=== PATIENT | female | born 1945 | race Two or more races ===

== ENCOUNTER → 2019-06-05 | Outpatient (CLI) | payer MEDICARE | LOC: MSC 15:45 | PROVIDERS: ATTEND Anesthesiology | DX: M17.11 Unilateral primary osteoarthritis, right knee (principal); F20.0 Paranoid schizophrenia ==

== ENCOUNTER 2019-09-10 21:41 | Inpatient (IN) | payer MEDICARE, OTHER ==
[~2019-09-10] VITALS: Ht 165.1 cm; Wt 108.9 kg
[2019-09-10] MEDS ORDERED: MAG HYDROX/AL HYDROX/SIMETH 30 ML UDC PO PRN (22:30)
[2019-09-10] MEDS ORDERED: BLOOD SUGAR DIAGNOSTIC 1 EACH STRIP IN ONE (22:30)
[2019-09-10] MEDS ORDERED: MAGNESIUM HYDROXIDE 30 ML UDC PO PRN (22:30)
[2019-09-10] MEDS ORDERED: LORAZEPAM 0.5 MG TABLET PO PRN (22:30)
--- NOTE | 2019-09-10 22:30 | NUR ---
Received patient azalea oliveros, stable condition, ambulatory with walker, patient signed the voluntary papers. Will continue to monitor q15 mins for safety
[2019-09-10] MEDS ORDERED: LANS30CA56 PO (23:17)
[2019-09-10] MEDS ORDERED: BENZ1TAB7 PO (23:17)
[2019-09-10] MEDS ORDERED: RISP1TAB7 PO (23:17)
[2019-09-10] MEDS ORDERED: MELO-107 PO (23:17)
[2019-09-10] MEDS ORDERED: IBUP-1957 PO (23:17)
[2019-09-10] MEDS ORDERED: LISI-603 PO (23:17)
[2019-09-10] MEDS ORDERED: DIVA500T2 PO (23:17)
--- NOTE | 2019-09-10 23:44 | NUR ---
Admitted a 73 y/o female from [facility]. On voluntary status. Patient admitting Dx. Major Depression. Medical dx. hypertension, GERD, arthritis. NKA. Upon face to face evaluation, patient appeared alert and oriented x 3-4, verbalized depression and suicidal ideation. Patient stated that she is feeling worthless because she is homeless, financial problem, no family and her physical condition. Patient contracted for safety and stated she needs help because she wants to get better. Spoke to the patient, encouraged the patient to verbalize her feelings. Explained the paper works and patient sign the consents. Informed of visiting hours and unit policies. Belongings and contraband checked. Q15 min checks initiated. Care plan started. Vital signs checked and recorded. Patient's rights discussed, guide to prescription meds handbook provided. Notified Dr. Encarnacion of the admission. Notified Dr. Desouza to reconcile the medication. Patient chose to sign the non-disclosure of informations. Will monitor patient for mood, safety and behavior. Will endorse to the day shift.
[2019-09-11] MEDS ORDERED: DIVALPROEX SODIUM 500 MG TABLET.DR PO SCH
[2019-09-11] MEDS ORDERED: IBUPROFEN 800 MG TABLET PO PRN
[2019-09-11 00:28] VITALS: BP 145/68
[2019-09-11 07:15] LABS: BASOPHILS % (AUTO) 0.3 % (0.0-2.0); EOSINOPHILS % (AUTO) 1.8 % (0.0-6.0); HEMATOCRIT 41 % (33-45); HEMOGLOBIN 13.5 g/dL (11.5-14.8); LYMPHOCYTES # (AUTO) 0.9 /CMM (0.8-4.8); LYMPHOCYTES % (AUTO) 21.7 % (20.0-44.0); MEAN CORPUSCULAR HGB CONC 33 g/dl (31.0-36.0); MEAN CORPUSCULAR VOLUME 92 fL (82-100); MONOCYTES # (AUTO) 0.6 /CMM (0.1-1.30); MONOCYTES % (AUTO) 14.8 % (2.0-12.0); NEUTROPHILS # (AUTO) 2.6 /CMM (1.8-8.9); NEUTROPHILS % (AUTO) 61.4 % (43.0-81.0); PLATELET COUNT (AUTO) 144 /CMM (150-450); RED BLOOD CELL COUNT(AUTO) 4.48 MIL/uL (4.0-5.2); WHITE BLOOD COUNT (AUTO) 4.3 K/uL (4.3-11.0)
[2019-09-11 07:18] LABS: ALBUMIN 3.4 g/dL (3.4-5.0); BILIRUBIN,TOTAL 0.6 mg/dL (0.2-1.0); CREATININE 0.8 mg/dL (0.6-1.3); MAGNESIUM 2.7 mg/dL (1.8-2.4); PHOSPHORUS 3.5 mg/dL (2.5-4.9); POTASSIUM 3.4 mmol/L (3.5-5.1); TOTAL PROTEIN, SERUM 6.2 g/dL (6.4-8.2)
[2019-09-11 07:28] LABS: THYROID STIMULATING HORMONE 4.237 uIU/mL (0.358-3.74)
[2019-09-11] MEDS ORDERED: IBUPROFEN 400 MG TABLET PO PRN (07:30)
[2019-09-11 08:00] VITALS: BP 136/58
[2019-09-11] MEDS: PANTOPRAZOLE 40 MG TABLET.DR PO SCH (09:17)
[2019-09-11] MEDS: LISINOPRIL (20MG) 20 MG TABLET PO SCH (09:19)
[2019-09-11] MEDS ORDERED: POTASSIUM CHLORIDE 20 MEQ TAB.PRT.SR PO SCH (10:00)
--- NOTE | 2019-09-11 14:00 | NUR ---
INITIAL DISCHARGE PLAN: Pt is homeless and wishes to be discharged to a SNF. SW will help form a safe and proper discharge plan in collaboration with .
--- NOTE | 2019-09-11 15:12 | NUR ---
GROUP NOTE: SW encouraged pt to participate in group therapy on this present day to discuss "discharge planning." Pt states that she needs a place to go as she is currently homeless, Pt states that she is open to SNF placement and also stated that she has many friends that have supported her but is tired of not having anywhere to go. SW provided reassurance and stated that she would assist her with placing her at a SNF.
[2019-09-11 16:00] VITALS: BP 148/73
--- NOTE | 2019-09-11 18:00 | NUR ---
STATED DEPRESSED UPON AWAKENING,BUT CONGENIAL AND RECEPTIVE TO SUGGESTIONS AND MED COMPLIANT.
[2019-09-11] MEDS: risperiDONE 1 MG TABLET PO SCH (18:08)
[2019-09-11] MEDS: BENZTROPINE MESYLATE (1 MG) 1 MG TABLET PO SCH (18:08)
--- NOTE | 2019-09-11 19:50 | NUR ---
PT. REQUESTING BANDAID FOR FINGER. NOTED SKIN TEAR 3RD FINGER LT. HAND. PHOTO TAKEN.ENDORSED TO NEXT SHIFT.
[2019-09-11 20:39] VITALS: BP 141/78
[2019-09-11] MEDS: DIVALPROEX SODIUM 500 MG TABLET.DR PO SCH (20:50)
[2019-09-11] MEDS: TEMAZEPAM 7.5 MG CAPSULE PO PRN (20:50)
[2019-09-12 07:30] LABS: CALCIUM, SERUM 8.9 mg/dL (8.5-10.1); CREATININE 0.8 mg/dL (0.6-1.3); POTASSIUM 3.6 mmol/L (3.5-5.1)
[2019-09-12 08:00] VITALS: BP_SYST 104; BP_SYST 141; BP_DIAS 58; BP_DIAS 80
[2019-09-12] MEDS: BENZTROPINE MESYLATE (1 MG) 1 MG TABLET PO SCH ×2 (09:27→18:16)
[2019-09-12] MEDS: LISINOPRIL (20MG) 20 MG TABLET PO SCH (09:27)
[2019-09-12] MEDS: PANTOPRAZOLE 40 MG TABLET.DR PO SCH (09:27)
[2019-09-12] MEDS: DIVALPROEX SODIUM 500 MG TABLET.DR PO SCH ×4 (09:28→21:05)
[2019-09-12] MEDS: ESCITALOPRAM OXALATE (10 MG) 10 MG TABLET PO SCH (09:28)
[2019-09-12] MEDS: risperiDONE 1 MG TABLET PO SCH ×2 (09:28→18:16)
--- NOTE | 2019-09-12 09:28 | NUR ---
GIVEN MOM-STATES NO BM X4 DAYS.
--- NOTE | 2019-09-12 11:30 | NUR ---
UA SENT PER ORDERS.
[2019-09-12] MEDS ORDERED: POLYVINYL ALCOHOL 15 ML BOTTLE EACHEYE PRN (12:00)
[2019-09-12 14:58] LABS: APPEARANCE,URINE CLEAR (CLEAR); BILIRUBIN,URINE NEGATIVE (NEGATIVE); BLOOD, URINE NEGATIVE Ery/uL (NEGATIVE); COLOR,URINE YELLOW (YELLOW); KETONES,URINE NEGATIVE (NEGATIVE); LEUKOCYTE ESTERASE ,URINE NEGATIVE (NEGATIVE); NITRITE, URINE NEGATIVE (NEGATIVE); PROTEIN,URINE NEGATIVE (NEGATIVE); UGLUCOSE NEGATIVE (NEGATIVE)
[2019-09-12 14:59] LABS: BACTERIA,URINE None seen /HPF (None Seen); RBC,URINE 0-2 /HPF (0-2); SQUAMOUS EPITHELIAL CELL,UR Few /HPF (None Seen); WBC,URINE 0-2 /HPF (0-3)
[2019-09-12 16:00] VITALS: BP 127/68
--- NOTE | 2019-09-12 19:15 | NUR ---
RN INITIAL NOTES: PT RESTING, A/O X3, ON RA RESPIRATIONS EVEN AND UNLABORED, PT DENIES ANY PAIN OR DISCOMFORT AT THIS TIME. PT ADMITS TO STILL FEELING DEPRESS BUT DENIES ANY PLANS OF HURTING HERSELF, DENIES ANY SI/HI. PT MED COMPLIANT PER REPORT, CONTINENT, AMBULATES WITH ASSIST TO BATHROOM. NOTED SKIN TEAR ON 3RD FINGER, WHERE WOUND CARE CONSULTED. UA SENT BY DAY RN , AWAITING FOR RESULT. SAFETY PRECAUTIONS FOR FALL INITIATED, SIDE RAILS UP X3 FOR SAFETY, WILL CONTINUE TO MONITOR PT [id number] FOR SAFETY AND ANY CHANGES IN BEHAVIOR.
[2019-09-12 20:00] VITALS: BP 136/72
[2019-09-12 20:56] VITALS: BP 136/72
[2019-09-12] MEDS: TEMAZEPAM 7.5 MG CAPSULE PO PRN (21:05)
--- NOTE | 2019-09-12 21:05 | NUR ---
PRN RESTORIL: PT REQUESTED FOR SLEEPING PILL, PRN RESTORIL ADMINISTERED AT THIS TIME.
[2019-09-13 08:00] VITALS: BP 145/74
[2019-09-13] MEDS: BENZTROPINE MESYLATE (1 MG) 1 MG TABLET PO SCH ×2 (08:51→17:22)
[2019-09-13] MEDS: ESCITALOPRAM OXALATE (10 MG) 10 MG TABLET PO SCH (08:52)
[2019-09-13] MEDS: PANTOPRAZOLE 40 MG TABLET.DR PO SCH (08:52)
[2019-09-13] MEDS: DIVALPROEX SODIUM 500 MG TABLET.DR PO SCH ×3 (08:52→20:27)
[2019-09-13] MEDS: LISINOPRIL (20MG) 20 MG TABLET PO SCH (08:53)
[2019-09-13] MEDS: risperiDONE 1 MG TABLET PO SCH ×2 (08:55→17:22)
--- NOTE | 2019-09-13 10:00 | NUR ---
SNF REFERRAL: LEEANN faxed SNF referral to [place] site safety coordinator at [facility] Address: [address], [place] [address] for review.
--- NOTE | 2019-09-13 11:34 | NUR ---
SNF REFERRAL: SW received a call from [place] regional director of admissions at [facility] Address: [address] [place] [address] stating pt has been accepted to the facility.
[2019-09-13] MEDS: POLYVINYL ALCOHOL 15 ML BOTTLE EACHEYE PRN (13:07)
[2019-09-13 16:00] VITALS: BP 117/71
[2019-09-13] MEDS: TEMAZEPAM 7.5 MG CAPSULE PO PRN (20:28)
[2019-09-13 20:35] VITALS: BP 126/65
[2019-09-14 08:00] VITALS: BP 102/65
[2019-09-14] MEDS: ESCITALOPRAM OXALATE (10 MG) 10 MG TABLET PO SCH (08:35)
[2019-09-14] MEDS: DIVALPROEX SODIUM 500 MG TABLET.DR PO SCH ×3 (08:35→21:23)
[2019-09-14] MEDS: BENZTROPINE MESYLATE (1 MG) 1 MG TABLET PO SCH ×2 (08:35→16:09)
[2019-09-14] MEDS: risperiDONE 1 MG TABLET PO SCH ×2 (08:35→16:09)
[2019-09-14] MEDS: PANTOPRAZOLE 40 MG TABLET.DR PO SCH (08:35)
[2019-09-14] MEDS: LISINOPRIL (20MG) 20 MG TABLET PO SCH (08:36)
[2019-09-14] MEDS ORDERED: Z GUARD REMEDY 2 OZ OINT TP PRN (10:30)
--- NOTE | 2019-09-14 10:30 | NUR ---
WOUND CARE CONSULT: PT PRESENTS WITH LEFT MIDDLE FINGER WOUND, PRESENT ON ADMISSION. PT STATES GOT FINGER CAUGHT IN A STORAGE UNIT DOOR. RECOMMEND SURGICAL CONSULT. DR LOPES NOTIFIED OF CONSULT REQUEST. WILL SEE PRN. PT IS INDEPENDENT WITH BED MOBILITY AND HAS CURRENT JAVON SCORE OF 21. MD IN AGREEMENT WITH PLAN OF CARE. Addendum: 09/14/19 at 1038 by ANNITA STRICKLAND WNDNU Amended: Links added.
[2019-09-14] MEDS: Z GUARD REMEDY 2 OZ OINT TP SCH (11:00)
[2019-09-14] MEDS: CLOTRIMAZOLE 1% 15 GM TUBE TP SCH ×2 (12:30→16:10)
[2019-09-14 16:00] VITALS: BP 122/75
[2019-09-14 20:00] VITALS: BP 121/71
[2019-09-14 20:27] VITALS: BP 121/71
[2019-09-15] MEDS: TEMAZEPAM 7.5 MG CAPSULE PO PRN ×2 (01:02→23:27)
--- NOTE | 2019-09-15 01:11 | NUR ---
PRN RESTORIL GIVEN PATIENT STATED SHE IS NOT ABLE TO SLEEP , RESTORIL 7.5 MG PO PRN GIVEN PER PT. REQUEST , WILL CONTINUE TO MONITOR.
[2019-09-15] MEDS: PANTOPRAZOLE 40 MG TABLET.DR PO SCH (07:56)
[2019-09-15 08:00] VITALS: BP 129/62
[2019-09-15] MEDS: ESCITALOPRAM OXALATE (10 MG) 10 MG TABLET PO SCH (08:28)
[2019-09-15] MEDS: DIVALPROEX SODIUM 500 MG TABLET.DR PO SCH ×3 (08:28→21:00)
[2019-09-15] MEDS: risperiDONE 1 MG TABLET PO SCH ×2 (08:28→16:31)
[2019-09-15] MEDS: LISINOPRIL (20MG) 20 MG TABLET PO SCH (08:29)
[2019-09-15] MEDS: BENZTROPINE MESYLATE (1 MG) 1 MG TABLET PO SCH ×2 (08:29→16:31)
[2019-09-15] MEDS: Z GUARD REMEDY 2 OZ OINT TP SCH (09:23)
[2019-09-15] MEDS: POLYVINYL ALCOHOL 15 ML BOTTLE EACHEYE PRN (09:23)
[2019-09-15] MEDS: CLOTRIMAZOLE 1% 15 GM TUBE TP SCH ×2 (09:24→16:34)
[2019-09-15] MEDS: POLYVINYL ALCOHOL 15 ML BOTTLE EACHEYE SCH ×2 (10:00→21:02)
--- NOTE | 2019-09-15 10:09 | NUR ---
ARTIFICIAL TEARS ADMIN AROUND 914 PRN. NEW ORDER SCHEDULED FOR 1000 OMITTED
[2019-09-15 16:00] VITALS: BP 129/65
[2019-09-15] MEDS: ACETAMINOPHEN 325 MG TABLET PO PRN (16:53)
[2019-09-15 20:31] VITALS: BP 119/49
[2019-09-16] MEDS: PANTOPRAZOLE 40 MG TABLET.DR PO SCH (07:30)
[2019-09-16 08:00] VITALS: BP 135/77
[2019-09-16] MEDS: ESCITALOPRAM OXALATE (10 MG) 10 MG TABLET PO SCH (08:31)
[2019-09-16] MEDS: risperiDONE 1 MG TABLET PO SCH ×2 (08:31→17:27)
[2019-09-16] MEDS: BENZTROPINE MESYLATE (1 MG) 1 MG TABLET PO SCH ×2 (08:31→17:27)
[2019-09-16] MEDS: DIVALPROEX SODIUM 500 MG TABLET.DR PO SCH ×3 (08:32→21:05)
[2019-09-16] MEDS: LISINOPRIL (20MG) 20 MG TABLET PO SCH (08:32)
[2019-09-16] MEDS: Z GUARD REMEDY 2 OZ OINT TP SCH (08:34)
[2019-09-16] MEDS: CLOTRIMAZOLE 1% 15 GM TUBE TP SCH ×2 (08:34→18:18)
[2019-09-16] MEDS: POLYVINYL ALCOHOL 15 ML BOTTLE EACHEYE SCH ×2 (10:31→21:05)
[2019-09-16] MEDS: ACETAMINOPHEN 325 MG TABLET PO PRN (15:46)
--- NOTE | 2019-09-16 15:46 | NUR ---
RN NOTE- PT W GENERALIZED ACHES AND PAINS. TYLENOL 650 MG GIVEN.
[2019-09-16 16:00] VITALS: BP 127/68
[2019-09-16 20:46] VITALS: BP 128/59
[2019-09-17 08:00] VITALS: BP 150/66
[2019-09-17] MEDS: PANTOPRAZOLE 40 MG TABLET.DR PO SCH (08:49)
[2019-09-17] MEDS: CLOTRIMAZOLE 1% 15 GM TUBE TP SCH ×2 (09:13→16:54)
[2019-09-17] MEDS: Z GUARD REMEDY 2 OZ OINT TP SCH (09:14)
[2019-09-17] MEDS: BENZTROPINE MESYLATE (1 MG) 1 MG TABLET PO SCH ×2 (09:15→16:52)
[2019-09-17] MEDS: LISINOPRIL (20MG) 20 MG TABLET PO SCH (09:15)
[2019-09-17] MEDS: risperiDONE 1 MG TABLET PO SCH ×2 (09:15→16:52)
[2019-09-17] MEDS: ESCITALOPRAM OXALATE (10 MG) 10 MG TABLET PO SCH (09:15)
[2019-09-17] MEDS: DIVALPROEX SODIUM 500 MG TABLET.DR PO SCH ×3 (09:15→21:16)
[2019-09-17] MEDS: POLYVINYL ALCOHOL 15 ML BOTTLE EACHEYE SCH ×2 (09:16→21:38)
[2019-09-17] MEDS: NEOMY SULF/BACITRAC ZN/POLY 15 GM TUBE TP SCH (12:28)
[2019-09-17 16:00] VITALS: BP 126/82
[2019-09-17] MEDS: ACETAMINOPHEN 325 MG TABLET PO PRN (18:23)
[2019-09-17 20:42] VITALS: BP 118/63
[2019-09-17] MEDS: POLYVINYL ALCOHOL 15 ML BOTTLE EACHEYE PRN (21:16)
[2019-09-18] MEDS: TEMAZEPAM 7.5 MG CAPSULE PO PRN ×2 (02:13→21:19)
[2019-09-18] MEDS: ACETAMINOPHEN 325 MG TABLET PO PRN ×3 (07:01→18:56)
--- NOTE | 2019-09-18 07:23 | NUR ---
RN NOTES : PT. RESTING COMFORTABLY, NO ACUTE DISTRESS NOTED, PT. DENIES SI/HI AT THIS TIME, ENCOURAGED PT. TO VERBALIZED ANY FEELING OR CONCERN PER PT. I AM FFELING VERY GOOD AND GOOD HOPE PLANNING FOR MY FUTURES, ATTENDED ALL NEEDS AND ANTICIPATED , WILL CONTINUITY WITH CARE.
[2019-09-18 08:00] VITALS: BP 145/74
[2019-09-18] MEDS: risperiDONE 1 MG TABLET PO SCH ×2 (08:37→16:29)
[2019-09-18] MEDS: ESCITALOPRAM OXALATE (10 MG) 10 MG TABLET PO SCH (08:37)
[2019-09-18] MEDS: DIVALPROEX SODIUM 500 MG TABLET.DR PO SCH ×3 (08:37→21:15)
[2019-09-18] MEDS: BENZTROPINE MESYLATE (1 MG) 1 MG TABLET PO SCH ×2 (08:37→16:29)
[2019-09-18] MEDS: LISINOPRIL (20MG) 20 MG TABLET PO SCH (08:38)
[2019-09-18] MEDS: NEOMY SULF/BACITRAC ZN/POLY 15 GM TUBE TP SCH (08:38)
[2019-09-18] MEDS: Z GUARD REMEDY 2 OZ OINT TP SCH (08:38)
[2019-09-18] MEDS: PANTOPRAZOLE 40 MG TABLET.DR PO SCH (08:38)
[2019-09-18] MEDS: CLOTRIMAZOLE 1% 15 GM TUBE TP SCH ×2 (08:45→17:10)
[2019-09-18] MEDS: POLYVINYL ALCOHOL 15 ML BOTTLE EACHEYE SCH ×2 (10:26→22:00)
--- NOTE | 2019-09-18 12:51 | NUR ---
PATIENT C/O TOOTHACHE. PRN TYLENOL GIVEN.
--- NOTE | 2019-09-18 14:46 | NUR ---
GROUP NOTE: SW encouraged pt to participate in group on this present day discussing "positive coping skills." Pt states he feels much better and states she feels ready for discharge, pt states she has been in touch with her friends that have helped her with her depression and she feels she will be able to get back on her feet once discharged to the SNF. Pt states she has been reading and journaling which has helped her. Pt is less isolative and less withdrawn, pt is alert and oriented x4.
[2019-09-18 16:00] VITALS: BP 159/80
--- NOTE | 2019-09-18 18:56 | NUR ---
PATIENT C/O TOOTHACHE, PRN TYLENOL GIVEN
[2019-09-18 20:17] VITALS: BP 144/60
[2019-09-18] MEDS: POLYVINYL ALCOHOL 15 ML BOTTLE EACHEYE PRN ×2 (21:15→22:35)
--- NOTE | 2019-09-18 22:40 | NUR ---
GPS/RN ARTIFICIAL TEARS AT 2200 ADMINISTERED BUT SCANNING WENT TO PRN DOSE.
--- NOTE | 2019-09-19 02:12 | NUR ---
GPS/RN PATIENT REFUSED THE BED ALARM IT BOTHERS HER. PATIENT AMBULATES WITH STEADY GAIT NOTED.
[2019-09-19 08:00] VITALS: BP 139/73
[2019-09-19] MEDS: ESCITALOPRAM OXALATE (10 MG) 10 MG TABLET PO SCH (09:32)
[2019-09-19] MEDS: risperiDONE 1 MG TABLET PO SCH ×2 (09:32→17:48)
[2019-09-19] MEDS: DIVALPROEX SODIUM 500 MG TABLET.DR PO SCH ×3 (09:32→21:07)
[2019-09-19] MEDS: PANTOPRAZOLE 40 MG TABLET.DR PO SCH (09:32)
[2019-09-19] MEDS: LISINOPRIL (20MG) 20 MG TABLET PO SCH (09:33)
[2019-09-19] MEDS: BENZTROPINE MESYLATE (1 MG) 1 MG TABLET PO SCH ×2 (09:34→17:48)
[2019-09-19] MEDS: Z GUARD REMEDY 2 OZ OINT TP SCH (09:34)
[2019-09-19] MEDS: POLYVINYL ALCOHOL 15 ML BOTTLE EACHEYE SCH ×2 (09:35→21:07)
[2019-09-19] MEDS: ACETAMINOPHEN 325 MG TABLET PO PRN ×2 (10:08→17:54)
[2019-09-19] MEDS: NEOMY SULF/BACITRAC ZN/POLY 15 GM TUBE TP SCH (10:08)
[2019-09-19] MEDS: CLOTRIMAZOLE 1% 15 GM TUBE TP SCH ×2 (10:08→17:50)
--- NOTE | 2019-09-19 15:57 | NUR ---
GROUP NOTE: SW encouraged pt to attend group therapy on this present day discussing "reality testing." Pt states she is doing much better and feels the medication is helping her. Pt stated she is ready to be discharged tomorrow to a SNF. Pts insight and judgement is good and is alert and oriented x4.
[2019-09-19 16:00] VITALS: BP 158/98
[2019-09-19 19:41] VITALS: BP 126/68
--- NOTE | 2019-09-19 21:00 | NUR ---
GPS RN NOTES: PT C/O UNABLE TO GO TO SLEEP. PT STATED, "CAN I HAVE A SLEEPING PILL?" OFFERED RESTORIL 7.5 MG PO PRN ORDERED. PT AGREED AND TOLERATED MEDICATION WELL. CONTINUE TO MONITOR.
[2019-09-19] MEDS: TEMAZEPAM 7.5 MG CAPSULE PO PRN (21:07)
--- NOTE | 2019-09-20 06:44 | NUR ---
DR. BRAMBILA GAVE AN ORDER TO D/C PT. TO [facility] TO CONTINUE SAME MEDS INCLUDING PRN AND TO FOLLOW UP WITH PSYCH AND MEDICAL DOCTORS.
[2019-09-20 08:00] VITALS: BP 126/52
[2019-09-20] MEDS: ESCITALOPRAM OXALATE (10 MG) 10 MG TABLET PO SCH (08:05)
[2019-09-20] MEDS: DIVALPROEX SODIUM 500 MG TABLET.DR PO SCH (08:05)
[2019-09-20] MEDS: risperiDONE 1 MG TABLET PO SCH (08:05)
[2019-09-20] MEDS: PANTOPRAZOLE 40 MG TABLET.DR PO SCH (08:05)
[2019-09-20] MEDS: BENZTROPINE MESYLATE (1 MG) 1 MG TABLET PO SCH (08:05)
[2019-09-20 08:06] VITALS: BP 126/52
[2019-09-20] MEDS: LISINOPRIL (20MG) 20 MG TABLET PO SCH (08:06)
[2019-09-20] MEDS: Z GUARD REMEDY 2 OZ OINT TP SCH (08:07)
[2019-09-20] MEDS: CLOTRIMAZOLE 1% 15 GM TUBE TP SCH (09:06)
[2019-09-20] MEDS: NEOMY SULF/BACITRAC ZN/POLY 15 GM TUBE TP SCH (09:06)
[2019-09-20] MEDS: ACETAMINOPHEN 325 MG TABLET PO PRN (09:53)
[2019-09-20] MEDS: POLYVINYL ALCOHOL 15 ML BOTTLE EACHEYE SCH (10:02)
--- NOTE | 2019-09-20 10:03 | NUR ---
DISCHARGE NOTE: Pt will be discharging at 12:00pm via [facility] to [facility] ([facility] [address] [place] [address] P: [phone]. Pt has no family to notify. Pts mood is euthymic with congruent affect. Pt denied visual/auditory hallucinations and denied suicidal/homicidal ideation. Pt will be under the care of Psychiatrist: Dr. Encarnacion Address: [address] [place] [address] and Bridge/Structure Inspection Team Leader: Dr Dunn Address: [address] [address] [phone]. The multidisciplinary exit care form was done, printed, signed, and given to the patient.
--- NOTE | 2019-09-20 12:48 | NUR ---
GPS DISCHARGE NOTE: 73 YEAR OLD FEMALE DISCHARGED TO [facility] IN STABLE CONDITION. COMPLIANT WITH MEDICATIONS, COOPERATIVE WITH TREATMENT PLANS. PATIENT DENIES SI/HI AND VAH. BEHAVIOR IMPROVED, PSYCHIATRIC TREATMENT PLANS MET, MEDICAL TREATMENT PLANS DEFERRED FOR CONTINUAL MONITORING. EDUCATED PT ABOUT AFTER CARE PLAN AND COPY PROVIDED. RETURNED PERSONAL BELONGINGS TO PATIENT. MEDICATIONS RECONCILED WITH DR. BRAMBILA AND DR. TRIMBLE. REPORT GIVEN TO KUMAR CHAVEZ AT [facility] FOR CONTINUITY OF CARE. PATIENT SIGNED ALL DISCHARGE PAPERWORK. PATIENT LEFT THE UNIT AT 1245 VIA AMBULANCE. TRIP #[id number]. Addendum: 10/10/19 at 1449 by DONNY MURPHY RN REFUSED SKIN ASSESSMENT AND WOUND PHOTOS ON DISCHARGE
== END 2019-09-20 12:45 | DRG 885 ==
LOC: GPS 21:41
PROVIDERS: ADMIT Psychiatry & Neurology Psychiatry
DX: F31.30 Bipolar disorder, current episode depressed, mild or moderate severity, unspecified (principal); R45.851 Suicidal ideations; I10 Essential (primary) hypertension; K21.9 Gastro-esophageal reflux disease without esophagitis; M19.90 Unspecified osteoarthritis, unspecified site; L30.4 Erythema intertrigo; F20.9 Schizophrenia, unspecified; Z59.0 Homelessness; Z91.5 Personal history of self-harm; S61.203A Unspecified open wound of left middle finger without damage to nail, initial encounter; X58.XXXA Exposure to other specified factors, initial encounter; Y93.9 Activity, unspecified; Y92.89 Other specified places as the place of occurrence of the external cause
CPT/HCPCS: 36415; 80048-TC; 80053-TC; 80061-TC; 80164-TC; 81000-TC; 82962-TC; 83735-TC; 84100-TC; 84443-TC; 85025-TC; 87081-TC; 87086-TC

== ENCOUNTER → 2019-11-20 | Outpatient (CLI) | payer MEDICARE, OTHER ==
[~2019-11-20] MED LIST: BENZ1TAB7 PO; DIVA500T2 PO; IBUP-1957 PO; LANS30CA56 PO; LISI-603 PO; MELO-107 PO; RISP1TAB7 PO
== END ==
LOC: MSC 10:15
PROVIDERS: ATTEND Anesthesiology
DX: M17.0 Bilateral primary osteoarthritis of knee (principal); F20.9 Schizophrenia, unspecified; F20.0 Paranoid schizophrenia; F31.9 Bipolar disorder, unspecified; Z99.3 Dependence on wheelchair; Z96.643 Presence of artificial hip joint, bilateral; Z79.1 Long term (current) use of non-steroidal anti-inflammatories (NSAID); Z79.899 Other long term (current) drug therapy

== ENCOUNTER 2020-07-10 11:49 | Inpatient (IN) | payer MEDICARE, OTHER ==
[~2020-07-10] VITALS: Ht 165.1 cm; Wt 108.4 kg
[2020-07-10] MEDS ORDERED: ACETAMINOPHEN ES 500 MG TABLET PO ONE (12:00)
--- NOTE | 2020-07-10 12:00 | NUR ---
BIB PA FROM [facility]ARE [facility]ACILITY FOR FEVER/COUGH AND (+) COVID 19 TEST RESULT. PATIENT TRANSFERRED TO BED 8, A/OX4, BREATHING EVEN AND UNLABORED, ON O2 AT 2LPM VIA NC 98% UPON ARRIVAL.
[2020-07-10] MEDS ORDERED: ACETAMINOPHEN ES 500 MG TABLET ONE (12:06)
[2020-07-10 12:28] LABS: BASOPHILS % (AUTO) 0.7 % (0.0-2.0); EOSINOPHILS % (AUTO) 0.8 % (0.0-6.0); HEMATOCRIT 41 % (33-45); HEMOGLOBIN 13.7 g/dL (11.5-14.8); LYMPHOCYTES % (AUTO) 17.8 % (20.0-44.0); MEAN CORPUSCULAR HGB CONC 33 g/dl (31.0-36.0); MEAN CORPUSCULAR VOLUME 94 fL (82-100); MONOCYTES # (AUTO) 0.7 /CMM (0.1-1.30); MONOCYTES % (AUTO) 12.1 % (2.0-12.0); NEUTROPHILS # (AUTO) 3.8 /CMM (1.8-8.9); NEUTROPHILS % (AUTO) 68.6 % (43.0-81.0); PLATELET COUNT (AUTO) 134 /CMM (150-450); RED BLOOD CELL COUNT(AUTO) 4.41 MIL/uL (4.0-5.2); WHITE BLOOD COUNT (AUTO) 5.5 K/uL (4.3-11.0)
--- NOTE | 2020-07-10 12:30 | NUR ---
IV LINE ESTABLISHED ON RIGHT WRIST G20 IV, BLOOD DRAWN AND SENT TO LAB.
--- NOTE | 2020-07-10 12:44 | NUR ---
PATIENT REFUSING A STRAIGHT CATHETER, PLACED ON A BED ROGER.
[2020-07-10 12:45] LABS: CALCIUM, SERUM 9.4 mg/dL (8.5-10.1); CARBON DIOXIDE 28 mmol/L (21-32); CHLORIDE 104 mmol/L (98-107); CREATININE 0.7 mg/dL (0.6-1.3); GLUCOSE 112 mg/dL (74-106); POTASSIUM 4.4 mmol/L (3.5-5.1); SODIUM SERUM 141 mmol/L (136-145); UREA NITROGEN, BLOOD 17 mg/dL (7-18)
[2020-07-10 12:58] LABS: ALANINE AMINOTRANSFERASE 59 U/L (12-78); ALBUMIN 3.6 g/dL (3.4-5.0); ALKALINE PHOSPHATASE 64 U/L (46-116); ASPARTATE AMINOTRANSFERASE 47 U/L (15-37); B-TYPE NATRIURETIC PEPTIDE 155 PG/ML (0-125); BILIRUBIN,TOTAL 0.5 mg/dL (0.2-1.0); TOTAL PROTEIN, SERUM 7.1 g/dL (6.4-8.2)
[2020-07-10 13:01] LABS: CREATINE KINASE, TOTAL 41 U/L (26-192); FERRITIN 249 ng/mL (8-388)
[2020-07-10 13:07] LABS: C-REACTIVE PROTEIN 2.5 mg/dL (0.0-0.9)
[2020-07-10] MEDS ORDERED: ACET-907 PO (13:10)
[2020-07-10] MEDS ORDERED: FAMO-131 PO (13:10)
[2020-07-10] MEDS ORDERED: ESCI10TA PO (13:10)
[2020-07-10] MEDS ORDERED: CRAN450C PO (13:10)
[2020-07-10] MEDS ORDERED: DICL50TA9 PO (13:10)
[2020-07-10] MEDS ORDERED: DEXT15DR6 OP (13:10)
[2020-07-10 14:04] LABS: APPEARANCE,URINE Clear (CLEAR); BILIRUBIN,URINE Negative (NEGATIVE); BLOOD, URINE Moderate Ery/uL (NEGATIVE); COLOR,URINE Yellow (YELLOW); LEUKOCYTE ESTERASE ,URINE Large (NEGATIVE); NITRITE, URINE Positive (NEGATIVE); PROTEIN,URINE 30 mg/dl (NEGATIVE); UGLUCOSE Negative (NEGATIVE)
[2020-07-10 14:05] LABS: BACTERIA,URINE 1+ /HPF (None Seen)
--- NOTE | 2020-07-10 14:08 | NUR ---
CALLED NURSING SUP FOR TELE BED.
--- NOTE | 2020-07-10 14:18 | NUR ---
covid swab sent.
--- NOTE | 2020-07-10 15:53 | NUR ---
BED 205
[2020-07-10] MEDS ORDERED: CEFTRIAXONE 1 G in IV D5W 50 ML IV ONE (16:00)
[2020-07-10] MEDS ORDERED: CEFTRIAXONE 1GM BAG (ER ONLY) 50 ML IV ONE (16:06)
--- NOTE | 2020-07-10 16:48 | NUR ---
REPORT GIVEN TO SHAWN CHAVEZ, PATIENT TRANSFERRED TO ROOM VIA ACLS PROTOCOL. NEEDS ATTENDED. PATIENT IN STABLE CONDITION.
--- NOTE | 2020-07-10 16:50 | NUR ---
Patient admitted from ER accompanied by staff with domo, reported by Raza/RN. Patient in stable condition.
[2020-07-10] MEDS ORDERED: ONDANSETRON HCL/PF 4 MG/2 ML VIAL IVP PRN (18:00)
[2020-07-10] MEDS ORDERED: MAG HYDROX/AL HYDROX/SIMETH 30 ML UDC PO PRN (18:00)
[2020-07-10] MEDS ORDERED: Z GUARD REMEDY 2 OZ OINT TP PRN (18:00)
[2020-07-10] MEDS ORDERED: MAGNESIUM HYDROXIDE 30 ML UDC PO PRN (18:00)
[2020-07-10] MEDS ORDERED: ZOLPIDEM TARTRATE 5 MG TABLET PO PRN (18:00)
[2020-07-10] MEDS ORDERED: HYDROCODONE/APAP 5/325MG TABLET PO PRN (18:00)
[2020-07-10] MEDS: ENOXAPARIN SODIUM 40 MG/0.4 ML DISP.SYRIN SQ SCH (18:27)
[2020-07-10] MEDS ORDERED: ENOXAPARIN SODIUM 40 MG/0.4 ML DISP.SYRIN SQ SCH (18:30)
--- NOTE | 2020-07-10 18:59 | NUR ---
RN Closing Note Patient in bed comfortably, does no appears pain or distress, skin is warm to touch, intact IV site on left hand 20g. Respiratory even and unlabored with oxygen, no sob or respiratory distress observed. Kept locked bed with elevated HOB for ensure airway and aspiration precaution and lowest position for safety. Call light within reach will endorse railways assistant.
[2020-07-10] MEDS ORDERED: DICLOFENAC SODIUM 50 MG TABLET.DR PO PRN (19:00)
[2020-07-10] MEDS ORDERED: POLYVINYL ALCOHOL 15 ML BOTTLE OP PRN (19:00)
--- NOTE | 2020-07-10 19:45 | NUR ---
HARNESS RIGGER NOTES RECEIVED ON BED A/O X 3-4,BREATHING REGULAR,NOT IN ANY FORM DISTRESS.SALINE LOCK LEFT HAND INTACT AND PATENT.DVT PUMP IN USED FOR DVT PROPHYLAXIS,CONVERSANT,DROPLET ISOLATION PENDING COVID TEST RESULT.CALL LIGHT IN REACH,NEEDS ANTICIPATED.
[2020-07-10] MEDS: AZITHROMYCIN 500 MG in IV D5W 250 ML IV SCH (19:48)
--- NOTE | 2020-07-10 19:48 | NUR ---
RAILWAY SIGNAL TECHNICIAN NOTES STARTED ON ZITHROMAX 500MG IVPB ORDERED.
[2020-07-10 20:00] VITALS: BP 148/92
[2020-07-10 20:41] VITALS: BP 148/92
[2020-07-10] MEDS: risperiDONE 1 MG TABLET PO SCH (20:48)
[2020-07-10] MEDS: GUAIFENESIN 300 MG/15 ML UDC PO PRN (23:59)
--- NOTE | 2020-07-10 23:59 | NUR ---
CHIEF OPERATOR NOTES C/O COUGH,MEDICATED WITH ROBITUSSIN 300MG/15ML PO NEW ORDER AR HOSPITALIST CLINT HANNA DNP.
[2020-07-11] VITALS (7 sets, daily range): BP systolic 99–140; BP diastolic 52–91
--- NOTE | 2020-07-11 06:40 | NUR ---
ORACLE ADF CONSULTANT NOTES COUGH IMPROVED WITH COUGH MEDICINE,ABLE TO SLEEP WELL.KEPT WARM AND COMFORTABLE,ISOLATION PRECAUTION OBSERVED,PENDING COVID TEST RESULT.IN NO ACUTE DISTRESS.WILL ENDORSE TO DAY NURSE FOR SAPNA.
[2020-07-11 06:45] LABS: BASOPHILS % (AUTO) 0.5 % (0.0-2.0); EOSINOPHILS % (AUTO) 0.6 % (0.0-6.0); HEMATOCRIT 38 % (33-45); HEMOGLOBIN 12.8 g/dL (11.5-14.8); LYMPHOCYTES % (AUTO) 20.6 % (20.0-44.0); MEAN CORPUSCULAR HGB CONC 34 g/dl (31.0-36.0); MEAN CORPUSCULAR VOLUME 92 fL (82-100); MONOCYTES # (AUTO) 0.6 /CMM (0.1-1.30); MONOCYTES % (AUTO) 13.4 % (2.0-12.0); NEUTROPHILS # (AUTO) 3.1 /CMM (1.8-8.9); NEUTROPHILS % (AUTO) 64.9 % (43.0-81.0); PLATELET COUNT (AUTO) 131 /CMM (150-450); RED BLOOD CELL COUNT(AUTO) 4.16 MIL/uL (4.0-5.2); WHITE BLOOD COUNT (AUTO) 4.7 K/uL (4.3-11.0)
[2020-07-11 07:14] LABS: THYROID STIMULATING HORMONE 2.068 uIU/mL (0.358-3.74)
[2020-07-11 07:20] LABS: CALCIUM, SERUM 8.4 mg/dL (8.5-10.1); CREATININE 0.6 mg/dL (0.6-1.3); MAGNESIUM 2.5 mg/dL (1.8-2.4); PHOSPHORUS 3.7 mg/dL (2.5-4.9); POTASSIUM 3.9 mmol/L (3.5-5.1)
[2020-07-11] MEDS ORDERED: PANTOPRAZOLE 40 MG TABLET.DR PO SCH (07:30)
--- NOTE | 2020-07-11 07:32 | NUR ---
RN NOTES RECEIVED PATIENT IN BED RESTING COMFORTABLY IN MODERATE HIGH BACK REST. A/O X3. ON OXYGEN 2LPM VIA NC. NO SIGNS OF DISTRESS NOTED AT THIS TIME. IV ACCESS ON ANDREINA #20, INTACT AND PATENT. SAFETY MEASURES IN PLACE, BED IN LOWEST LOCKED POSITION WITH SIDE RAILS UP X2. CALL LIGHT WITHIN REACH. WILL CONTINUE TO MONITOR.
[2020-07-11] MEDS: ESCITALOPRAM OXALATE (10 MG) 10 MG TABLET PO SCH (08:25)
[2020-07-11] MEDS: risperiDONE 1 MG TABLET PO SCH ×2 (08:25→21:12)
[2020-07-11] MEDS: DIVALPROEX SODIUM 500 MG TABLET.DR PO SCH ×3 (08:25→16:18)
[2020-07-11] MEDS: BENZTROPINE MESYLATE (1 MG) 1 MG TABLET PO SCH ×2 (08:25→16:18)
[2020-07-11] MEDS: FAMOTIDINE (20 MG) 20 MG TABLET PO SCH (08:25)
[2020-07-11] MEDS: LISINOPRIL (20MG) 20 MG TABLET PO SCH (08:26)
[2020-07-11] MEDS ORDERED: Medication Not On Formulary EA (Cranberry Fruit Concentrate (Cranberry) 450 MG) PO SCH (09:00)
[2020-07-11] MEDS: ENOXAPARIN SODIUM 40 MG/0.4 ML DISP.SYRIN SQ SCH (17:01)
[2020-07-11] MEDS: AZITHROMYCIN 500 MG in IV D5W 250 ML IV SCH (18:03)
--- NOTE | 2020-07-11 18:34 | NUR ---
RN NOTES PATIENT IN BED RESTING COMFORTABLY IN MODERATE HIGH BACK REST. A/O X3. ON OXYGEN 2LPM VIA NC. NO SIGNS OF DISTRESS NOTED THROUGHOUT THE SHIFT. IV ACCESS ON ANDREINA #20, INTACT AND PATENT. SAFETY MEASURES IN PLACE, BED IN LOWEST LOCKED POSITION WITH SIDE RAILS UP X2. CALL LIGHT WITHIN REACH. WILL ENDORSE TO RECORDS MANAGEMENT CLERK NURSE FOR SAPNA.
--- NOTE | 2020-07-11 19:50 | NUR ---
ALARM MECHANISM ADJUSTER NOTES PATIENT IN BED, AWAKE, ALERT AND ORIENTED X 4. BREATHING EVEN AND UNLABORED ON 2L NC. SHOWS NO SIGNS OF ACUTE RESPIRATORY DISTRESS, NO ACUTE PAIN. TELE MONITOR ON SR. IV ON ANDREINA 20G ITS CLEAN DRY AND INTACT. SHOWS NO SIGNS OF INFILTRATION, NO REDNESS. SAFETY PRECAUTIONS IN PLACE. BED IN LOWEST POSITION, LOCKED, AND CALL LIGHT KEPT WITHIN REACH. WILL CONTINUE TO MONITOR.
[2020-07-11] MEDS: ACETAMINOPHEN 325 MG TABLET PO PRN (21:12)
--- NOTE | 2020-07-11 22:30 | NUR ---
MANAGER BUSINESS NOTES PATIENT TEMP OF 99.7 AT 1999. GIVEN PRN TYLENOL AT 2115 AND STARTED COOLING MEASURE. TEMP 1 HOUR AFTER 98.8. WILL CONTINUE TO MONITOR
[2020-07-12 04:00] VITALS: BP 107/58
--- NOTE | 2020-07-12 06:34 | NUR ---
PRODUCT COORDINATOR NOTES PATIENT IN BED, ASLEEP, ALERT AND ORIENTED X 4. BREATHING EVEN AND UNLABORED ON 2L NC. SHOWS NO SIGNS OF ACUTE RESPIRATORY DISTRESS, NO ACUTE PAIN. TELE MONITOR ON SR. IV ON ANDREINA 20G ITS CLEAN DRY AND INTACT. SHOWS NO SIGNS OF INFILTRATION, NO REDNESS. ALL DUE MEDICATIONS GIVEN. ALL NEEDS ATTENDED TO. SAFETY PRECAUTIONS IN PLACE. ISOLATION PRECAUTIONS. BED IN LOWEST POSITION, LOCKED, AND CALL LIGHT KEPT WITHIN REACH. WILL ENDORSE TO ONCOMING NURSE.
[2020-07-12 07:19] LABS: BASOPHILS % (AUTO) 0.6 % (0.0-2.0); EOSINOPHILS % (AUTO) 1.3 % (0.0-6.0); HEMATOCRIT 38 % (33-45); HEMOGLOBIN 12.5 g/dL (11.5-14.8); LYMPHOCYTES # (AUTO) 1.1 /CMM (0.8-4.8); LYMPHOCYTES % (AUTO) 31.6 % (20.0-44.0); MEAN CORPUSCULAR HGB CONC 33 g/dl (31.0-36.0); MEAN CORPUSCULAR VOLUME 93 fL (82-100); MONOCYTES # (AUTO) 0.4 /CMM (0.1-1.30); MONOCYTES % (AUTO) 11.8 % (2.0-12.0); NEUTROPHILS # (AUTO) 1.8 /CMM (1.8-8.9); NEUTROPHILS % (AUTO) 54.7 % (43.0-81.0); PLATELET COUNT (AUTO) 122 /CMM (150-450); WHITE BLOOD COUNT (AUTO) 3.4 K/uL (4.3-11.0)
[2020-07-12 07:48] LABS: CALCIUM, SERUM 8.9 mg/dL (8.5-10.1); CREATININE 0.9 mg/dL (0.6-1.3); MAGNESIUM 2.8 mg/dL (1.8-2.4); PHOSPHORUS 5.1 mg/dL (2.5-4.9); POTASSIUM 4.1 mmol/L (3.5-5.1)
--- NOTE | 2020-07-12 08:00 | NUR ---
RN OPENING NOTE Patient is resting in bed, A/O x3, showing no signs of acute distress or SOB, saturating >95% on 2L NC. Patient denies any paini of discomfort at this time. IV line in the ANDREINA#20g is clean and intact flushing well. Bed is in lowest position, side rails x3 in upright position, call light is within reach, fall safety and aspiration precautions enforced. Will continue with plan of care.
[2020-07-12] MEDS: ESCITALOPRAM OXALATE (10 MG) 10 MG TABLET PO SCH (08:33)
[2020-07-12] MEDS: BENZTROPINE MESYLATE (1 MG) 1 MG TABLET PO SCH ×2 (08:33→16:17)
[2020-07-12] MEDS: DIVALPROEX SODIUM 500 MG TABLET.DR PO SCH ×3 (08:33→16:17)
[2020-07-12] MEDS: FAMOTIDINE (20 MG) 20 MG TABLET PO SCH (08:34)
[2020-07-12] MEDS: risperiDONE 1 MG TABLET PO SCH ×2 (08:34→20:57)
[2020-07-12] MEDS: LISINOPRIL (20MG) 20 MG TABLET PO SCH (08:34)
[2020-07-12] MEDS: CEFTRIAXONE 1 G in IV D5W 50 ML IV SCH (15:16)
[2020-07-12] MEDS: GUAIFENESIN 300 MG/15 ML UDC PO PRN ×2 (15:18→23:28)
[2020-07-12 16:00] VITALS: BP 131/88
[2020-07-12] MEDS: ENOXAPARIN SODIUM 40 MG/0.4 ML DISP.SYRIN SQ SCH (17:00)
[2020-07-12] MEDS: AZITHROMYCIN 250 MG TABLET PO SCH (18:15)
--- NOTE | 2020-07-12 19:13 | NUR ---
RN CLOSING NOTE Patient is resting in bed, A/O x3, showing no signs of acute distress or SOB, saturating >95% on 2L NC. Patient denies any paini of discomfort at this time. IV line in the ANDREINA#20g is clean and intact flushing well. All patient needs met, all due medications given, patient kept clean and dry throughout shift. Bed is in lowest position, side rails x3 in upright position, call light is within reach, fall safety and aspiration precautions enforced. Will endorse to steward/stewardess night.
[2020-07-12 20:00] VITALS: BP 138/41
[2020-07-12] MEDS: ACETAMINOPHEN 325 MG TABLET PO PRN (23:19)
--- NOTE | 2020-07-12 23:19 | NUR ---
ENTERPRISE APPLICATION DEVELOPER NOTES PT CHANGED MIND ON TYLENOL, UNDO THE MEDICATION SCAN. WASTED MEDICATION WITH ELYSIA CHAVEZ. WILL CONTINUE TO MONITOR.
--- NOTE | 2020-07-13 06:32 | NUR ---
PLUMBER NOTES PATIENT IN BED, ASLEEP, ALERT AND ORIENTED X 4. BREATHING EVEN AND UNLABORED ON 2L NC. SHOWS NO SIGNS OF ACUTE RESPIRATORY DISTRESS, NO ACUTE PAIN. TELE MONITOR ON SR. IV ON LAC 22G ITS CLEAN DRY AND INTACT. SHOWS NO SIGNS OF INFILTRATION, NO REDNESS. ALL DUE MEDICATIONS GIVEN. ALL NEEDS ATTENDED TO. SAFETY PRECAUTIONS IN PLACE. ISOLATION PRECAUTIONS. BED IN LOWEST POSITION, LOCKED, AND CALL LIGHT KEPT WITHIN REACH. WILL ENDORSE TO ONCOMING NURSE.
[2020-07-13 07:02] LABS: BASOPHILS % (AUTO) 0.8 % (0.0-2.0); EOSINOPHILS % (AUTO) 1.3 % (0.0-6.0); HEMATOCRIT 37 % (33-45); HEMOGLOBIN 12.1 g/dL (11.5-14.8); LYMPHOCYTES # (AUTO) 0.9 /CMM (0.8-4.8); LYMPHOCYTES % (AUTO) 32.6 % (20.0-44.0); MEAN CORPUSCULAR HGB CONC 33 g/dl (31.0-36.0); MEAN CORPUSCULAR VOLUME 92 fL (82-100); MONOCYTES # (AUTO) 0.4 /CMM (0.1-1.30); MONOCYTES % (AUTO) 12.9 % (2.0-12.0); NEUTROPHILS # (AUTO) 1.5 /CMM (1.8-8.9); NEUTROPHILS % (AUTO) 52.4 % (43.0-81.0); PLATELET COUNT (AUTO) 126 /CMM (150-450); RED BLOOD CELL COUNT(AUTO) 3.96 MIL/uL (4.0-5.2); WHITE BLOOD COUNT (AUTO) 2.8 K/uL (4.3-11.0)
--- NOTE | 2020-07-13 07:15 | NUR ---
INSTALLATION TECHNICIAN OPENING NOTES RECEIVED PT ON BED, AAOX4, ABLE TO MAKE NEEDS KNOWN. RESPIRATION EVEN AND NON LABORED WITH NO PRESENCE OF ACUTE RESPIRATORY DISTRESS, TOLERATING O2 AT 2LPM VIA N/C. ABD SOFT AND NON DISTENDED WITH ACTIVE BOWEL SOUNDS. PT DENIES PAIN AND DISCOMFORT. IV AT LAC #22, PATENT IN FLUSHING, NO S/SX OF INFILTRATION. TELE MONITOR SHOWS SR 85. BED IN LOW LOCKED POSITION, SRX2 UP FOR SAFETY, CALL LIGHT WITHIN REACH. WILL CONT TO MONITOR CARE
[2020-07-13 07:33] LABS: CALCIUM, SERUM 8.8 mg/dL (8.5-10.1); CREATININE 0.7 mg/dL (0.6-1.3); MAGNESIUM 2.7 mg/dL (1.8-2.4); PHOSPHORUS 3.8 mg/dL (2.5-4.9); POTASSIUM 4.2 mmol/L (3.5-5.1)
[2020-07-13 08:00] VITALS: BP 154/85
[2020-07-13] MEDS: DIVALPROEX SODIUM 500 MG TABLET.DR PO SCH ×3 (08:45→17:11)
[2020-07-13] MEDS: risperiDONE 1 MG TABLET PO SCH ×2 (08:45→21:37)
[2020-07-13] MEDS: LISINOPRIL (20MG) 20 MG TABLET PO SCH (08:46)
[2020-07-13] MEDS: BENZTROPINE MESYLATE (1 MG) 1 MG TABLET PO SCH ×2 (08:46→17:11)
[2020-07-13] MEDS: ACETAMINOPHEN 325 MG TABLET PO PRN (08:46)
[2020-07-13] MEDS: FAMOTIDINE (20 MG) 20 MG TABLET PO SCH (08:46)
[2020-07-13] MEDS: ESCITALOPRAM OXALATE (10 MG) 10 MG TABLET PO SCH (08:46)
[2020-07-13 09:10] LABS: BASOPHILS % (MANUAL) 1 % (0.0-2.0); EOSINOPHILS % (MANUAL) 1 % (0-4); LYMPHOCYTES % (MANUAL) 37 % (16-48); MONOCYTES % (MANUAL) 7 % (0-11.0); NEUTROPHILS % (MANUAL) 54 (42-76)
[2020-07-13 12:00] VITALS: BP 120/70
[2020-07-13] MEDS: CEFTRIAXONE 1 G in IV D5W 50 ML IV SCH (13:10)
--- NOTE | 2020-07-13 14:50 | NUR ---
DEVELOPMENTAL PSYCHOLOGIST NOTES PT STATED CELLPHONE MISSING. AFTER THOROUGH SEARCHING IN THE ROOM, WAS ABLE TO FIND THE PHONE
[2020-07-13] MEDS: GUAIFENESIN 300 MG/15 ML UDC PO PRN ×2 (15:04→21:37)
[2020-07-13 16:00] VITALS: BP 96/58
[2020-07-13] MEDS: ENOXAPARIN SODIUM 40 MG/0.4 ML DISP.SYRIN SQ SCH (17:12)
[2020-07-13] MEDS: AZITHROMYCIN 250 MG TABLET PO SCH (18:26)
--- NOTE | 2020-07-13 18:50 | NUR ---
PETROLOGIST CLOSING NOTES PT A/OX4. NO PRESENCE OF ACUTE RESPIRATORY DISTRESS, ON O2 AT 2LPM VIA N/C. LITTLE BM TODAY. SKIN WARM TO TOUCH AND DRY. PT DENIES PAIN AND DISCOMFORT. IV SITE AT LAC #22 PATENT IN FLUSHING. TELE MONITOR SHOWS SR 76. ALL CARE ATTENDED. ENDORSED CARE TO NEXT SHIFT WITH NO SAPNA.
--- NOTE | 2020-07-13 19:05 | NUR ---
CAP MACHINE OPERATOR OPENING NOTES RECEIVED PATIENT IN BED AWAKE ALERT AND ORIENTED X4 , RESPIRATIONS EVEN AND UNLABORED WITH EQUAL RISE AND FALL OF CHEST, ON 2 L VIA NC TOLERATING WELL, ON ISOLATION FOR COVID, PRECAUTIONS RENDERED, ON DISTRICT SALES REPRESENTATIVE SR 77.IV SITE TO LEFT AC #22G INTACT AND PATENT, NO REDNESS, NO INFILTRATION PRESENT, ORIENTED TO STAFF AND CALL LIGHT AND KEPT WITHIN REACH, SAFETY PRECAUTIONS RENDERED LOW BED AND LOCKED, ALL NEEDS ATTENDED AT THIS TIME, WILL CONTINUE TO MONITOR , DENIES ANY PAIN AT THIS TIME.
[2020-07-13 20:00] VITALS: BP 151/77
[2020-07-13 20:08] VITALS: BP 151/77
--- NOTE | 2020-07-13 21:37 | NUR ---
BUSINESS MACHINE OPERATOR NOTES PATIENT NOTED WITH COUGH REQUESTED FOR COUGH MEDICATION , PRN ROBITUSSIN GIVEN ORDERED, WILL CONTINUE TO MONITOR FOR EFFECTIVENESS.
[2020-07-14] VITALS (7 sets, daily range): BP systolic 113–148; BP diastolic 69–88
--- NOTE | 2020-07-14 06:27 | NUR ---
GIFT SHOP MANAGER CLOSING NOTES PATIENT IN BED SLEEPING EASILY AROUSABLE, ALERT AND ORIENTED X4 , RESPIRATIONS EVEN AND UNLABORED WITH EQUAL RISE AND FALL OF CHEST, ON 2 L VIA NC TOLERATING WELL, ON ISOLATION FOR COVID, PRECAUTIONS RENDERED, ON DOCTOR OSTEOPATHIC SR 72. IV SITE TO LEFT AC #22G INTACT AND PATENT, NO REDNESS, NO INFILTRATION PRESENT, CALL LIGHT KEPT WITHIN REACH, SAFETY PRECAUTIONS RENDERED LOW BED AND LOCKED, ALL NEEDS ATTENDED AT THIS TIME, WILL CONTINUE TO MONITOR , DENIES ANY PAIN AT THIS TIME. AND ENDORSE TO NEXT SHIFT. REPOSITIONED AND OFFLOADED HEELS.KEPT CLEAN AND DRY.
[2020-07-14 06:41] LABS: BASOPHILS % (AUTO) 0.6 % (0.0-2.0); EOSINOPHILS % (AUTO) 0.9 % (0.0-6.0); HEMATOCRIT 36 % (33-45); HEMOGLOBIN 11.8 g/dL (11.5-14.8); LYMPHOCYTES % (AUTO) 39.1 % (20.0-44.0); MEAN CORPUSCULAR HGB CONC 33 g/dl (31.0-36.0); MEAN CORPUSCULAR VOLUME 93 fL (82-100); MONOCYTES # (AUTO) 0.3 /CMM (0.1-1.30); NEUTROPHILS # (AUTO) 1.2 /CMM (1.8-8.9); NEUTROPHILS % (AUTO) 47.4 % (43.0-81.0); PLATELET COUNT (AUTO) 121 /CMM (150-450); RED BLOOD CELL COUNT(AUTO) 3.82 MIL/uL (4.0-5.2); WHITE BLOOD COUNT (AUTO) 2.4 K/uL (4.3-11.0)
[2020-07-14 06:42] LABS: CALCIUM, SERUM 8.6 mg/dL (8.5-10.1); CREATININE 0.7 mg/dL (0.6-1.3); MAGNESIUM 2.8 mg/dL (1.8-2.4); PHOSPHORUS 3.8 mg/dL (2.5-4.9); POTASSIUM 4.3 mmol/L (3.5-5.1)
--- NOTE | 2020-07-14 07:13 | NUR ---
PLSQL DEVELOPER OPENING NOTES RECEIVED PATIENT IN BED, ASLEEP. PATIENT ON OXYGEN THERAPY AT 2LPM VIA NASAL CANNULA; BREATHING IS EVEN AND UNLABORED; NO SOB NOTED AT THIS POINT. TELE MONITOR WITH A CURRENT SIGN OF NORMAL SINUS RHYTHM 66 BPM. LAC IV ACCESS G # 22 PRESENT AND INTACT. NO SIGNS OF PAIN SUCH MOANING, FACIAL GRIMACING OR GUARDING. SAFETY PRECAUTIONS IN PLACE; BED IN LOW POSITION AND LOCKED, RAILS UPX2, CALL LIGHT WITHIN REACH. WILL CONTINUE TO MONITOR PATIENT.
[2020-07-14] MEDS: LISINOPRIL (20MG) 20 MG TABLET PO SCH (08:11)
[2020-07-14] MEDS: risperiDONE 1 MG TABLET PO SCH ×2 (08:11→21:41)
[2020-07-14] MEDS: BENZTROPINE MESYLATE (1 MG) 1 MG TABLET PO SCH ×2 (08:11→16:29)
[2020-07-14] MEDS: FAMOTIDINE (20 MG) 20 MG TABLET PO SCH (08:11)
[2020-07-14] MEDS: DIVALPROEX SODIUM 500 MG TABLET.DR PO SCH ×3 (08:12→16:29)
[2020-07-14] MEDS: ESCITALOPRAM OXALATE (10 MG) 10 MG TABLET PO SCH (08:12)
[2020-07-14 10:50] LABS: ABG BASE EXCESS 2.9 mmol/L; ABG OXYGEN SATURATION 90.4 % (92.0-98.5); ABG PCO2 42.2 mmHg (35.0-45.0); ABG PH 7.432 (7.350-7.450); ABG PO2 59.4 mmHg (75.0-100.0); AaDO2 39.8 mmHg; COHb 0.7 % (0.5-1.5); O2Hb 89.8 % (94.0-97.0); SITE, ABG Right Brachial; VENT MODE, BG room air
[2020-07-14] MEDS: CEFTRIAXONE 1 G in IV D5W 50 ML IV SCH (13:28)
[2020-07-14] MEDS: DEXAMETHASONE SOD PHOSPHATE 10 MG/ML VIAL IV SCH (16:29)
[2020-07-14] MEDS: ACETAMINOPHEN 325 MG TABLET PO PRN (17:50)
[2020-07-14] MEDS: AZITHROMYCIN 250 MG TABLET PO SCH (18:01)
[2020-07-14] MEDS: ENOXAPARIN SODIUM 40 MG/0.4 ML DISP.SYRIN SQ SCH (18:02)
--- NOTE | 2020-07-14 18:40 | NUR ---
TYPING POOL SUPERVISOR CLOSING NOTES PATIENT REMAINS IN BED, AWAKE, A/O X3. PATIENT ON OXYGEN THERAPY AT 2LPM VIA NASAL CANNULA; BREATHING IS EVEN AND UNLABORED; NO SOB NOTED DURING THE DAY. TELE MONITOR WITH A CURRENT READING OF NORMAL SINUS RHYTHM 90 BPM. LAC IV ACCESS G # 22 PRESENT AND INTACT. ALL NEEDS ATTENDED TO THROUGHOUT THE DAY. NO COMPLAINS OF PAIN. FEVER TREATED WITH PRN TYLENOL. SAFETY PRECAUTIONS IN PLACE; BED IN LOW POSITION AND LOCKED, RAILS UPX2, CALL LIGHT WITHIN REACH. WILL ENDORSE TO PACKAGE HANDLER NURSE.
--- NOTE | 2020-07-14 19:18 | NUR ---
GRAIN SCOOPER: RECEIVED PATIENT Patient in bed, turned and repositioned, had BM. Skin intact. Patient is A/O x4 Sinus rhythm in the Tele monitor HR 79, denies pain. Contact isolation, Droplet precaution with eye shield protection maintained.
[2020-07-15 05:02] VITALS: BP 121/67
--- NOTE | 2020-07-15 06:16 | NUR ---
FIELD HAND: END OF SHIFT REPORT Patient in bed. A/O x4 . Sinus rhythm HR 65 in the Tele monitor. On IV Rocephin and Zithromax PO, afebrile during the shift. Had BM this shift, incontinent with Bowel and Bladder function, denies pain. Plan for continue Dexamethasone. ID following. Contact isolation, Droplet precaution with Eye shield protection maintained. Will endorse to oncoming RN.
[2020-07-15 06:26] LABS: BASOPHILS % (AUTO) 0.3 % (0.0-2.0); HEMATOCRIT 38 % (33-45); HEMOGLOBIN 12.6 g/dL (11.5-14.8); LYMPHOCYTES # (AUTO) 0.7 /CMM (0.8-4.8); LYMPHOCYTES % (AUTO) 32.8 % (20.0-44.0); MEAN CORPUSCULAR HGB CONC 33 g/dl (31.0-36.0); MEAN CORPUSCULAR VOLUME 92 fL (82-100); MONOCYTES # (AUTO) 0.2 /CMM (0.1-1.30); MONOCYTES % (AUTO) 9.6 % (2.0-12.0); NEUTROPHILS # (AUTO) 1.2 /CMM (1.8-8.9); NEUTROPHILS % (AUTO) 57.3 % (43.0-81.0); PLATELET COUNT (AUTO) 126 /CMM (150-450); RED BLOOD CELL COUNT(AUTO) 4.11 MIL/uL (4.0-5.2); WHITE BLOOD COUNT (AUTO) 2.2 K/uL (4.3-11.0)
--- NOTE | 2020-07-15 07:05 | NUR ---
ms rn received on bed,awake,alert,oriented x3,not in any form of distress,respirations even and unlabored,no sob noted,lungs are diminish, abdomen soft,positive bowel sounds,denies pain at this time,all needs attended.
[2020-07-15 07:07] LABS: CALCIUM, SERUM 8.5 mg/dL (8.5-10.1); CREATININE 0.7 mg/dL (0.6-1.3); MAGNESIUM 2.8 mg/dL (1.8-2.4); PHOSPHORUS 3.4 mg/dL (2.5-4.9); POTASSIUM 4.2 mmol/L (3.5-5.1)
[2020-07-15 08:00] VITALS: BP 104/46
[2020-07-15] MEDS: DIVALPROEX SODIUM 500 MG TABLET.DR PO SCH ×3 (08:30→16:10)
[2020-07-15] MEDS: risperiDONE 1 MG TABLET PO SCH ×2 (08:30→20:42)
[2020-07-15] MEDS: ESCITALOPRAM OXALATE (10 MG) 10 MG TABLET PO SCH (08:30)
[2020-07-15] MEDS: FAMOTIDINE (20 MG) 20 MG TABLET PO SCH (08:30)
[2020-07-15] MEDS: BENZTROPINE MESYLATE (1 MG) 1 MG TABLET PO SCH ×2 (08:30→16:10)
[2020-07-15] MEDS: DEXAMETHASONE SOD PHOSPHATE 10 MG/ML VIAL IV SCH (08:31)
[2020-07-15] MEDS: LISINOPRIL (20MG) 20 MG TABLET PO SCH (08:31)
--- NOTE | 2020-07-15 08:50 | NUR ---
ms wright breakfast served,due meds given,tolerated well.
--- NOTE | 2020-07-15 08:55 | NUR ---
ms rn was seen by dr. hong ,with orders made and carried out.
[2020-07-15 12:00] VITALS: BP 100/55
--- NOTE | 2020-07-15 13:00 | NUR ---
ms rn patient on bed, no distress noted.
[2020-07-15] MEDS: CEFTRIAXONE 1 G in IV D5W 50 ML IV SCH (14:00)
[2020-07-15 16:00] VITALS: BP 107/61
--- NOTE | 2020-07-15 16:30 | NUR ---
ms rn spoke w/ susan,transplant case manager,patient will be transferred to snf tomorrow,not today.
[2020-07-15] MEDS: ENOXAPARIN SODIUM 40 MG/0.4 ML DISP.SYRIN SQ SCH (18:45)
--- NOTE | 2020-07-15 18:46 | NUR ---
ms rn on bed, no distress noted,all needs attended.
--- NOTE | 2020-07-15 19:00 | NUR ---
RN OPENING NOTES Received patient A/O x3, awake, resting on bed. On RA, no respiratory distress noted at this time. On tele monitor with NSR noted. Pt denies any discomfort at this time. Kept on bed clean, dry and comfortable. On fall and aspiration precautions. Will continue to monitor accordingly.
[2020-07-16 06:31] LABS: BASOPHILS % (AUTO) 0.3 % (0.0-2.0); HEMATOCRIT 39 % (33-45); LYMPHOCYTES # (AUTO) 0.9 /CMM (0.8-4.8); LYMPHOCYTES % (AUTO) 16.2 % (20.0-44.0); MEAN CORPUSCULAR HGB CONC 34 g/dl (31.0-36.0); MEAN CORPUSCULAR VOLUME 92 fL (82-100); MONOCYTES # (AUTO) 0.5 /CMM (0.1-1.30); MONOCYTES % (AUTO) 8.7 % (2.0-12.0); NEUTROPHILS # (AUTO) 4.1 /CMM (1.8-8.9); NEUTROPHILS % (AUTO) 74.8 % (43.0-81.0); PLATELET COUNT (AUTO) 137 /CMM (150-450); WHITE BLOOD COUNT (AUTO) 5.5 K/uL (4.3-11.0)
[2020-07-16 06:48] LABS: CALCIUM, SERUM 8.8 mg/dL (8.5-10.1); CREATININE 0.7 mg/dL (0.6-1.3); POTASSIUM 4.3 mmol/L (3.5-5.1)
--- NOTE | 2020-07-16 06:55 | NUR ---
RN CLOSING NOTES Pt resting on bed, no complaints noted. Afebrile the whole shift. Kept on bed clean, dry and comfortable. All nursing needs attended. On tele monitor with NSR noted. Endorsed.
[2020-07-16 08:00] VITALS: BP 122/40
[2020-07-16] MEDS: LISINOPRIL (20MG) 20 MG TABLET PO SCH (09:00)
--- NOTE | 2020-07-16 09:15 | NUR ---
MULTI LINE CLAIMS ADJUSTER NOTES HELD LISINOPRIL BP 93/61.
[2020-07-16] MEDS ORDERED: DEXA10VI2 IV (09:39)
[2020-07-16] MEDS: ESCITALOPRAM OXALATE (10 MG) 10 MG TABLET PO SCH (10:03)
[2020-07-16] MEDS: DEXAMETHASONE SOD PHOSPHATE 10 MG/ML VIAL IV SCH (10:03)
[2020-07-16] MEDS: DIVALPROEX SODIUM 500 MG TABLET.DR PO SCH ×3 (10:03→17:15)
[2020-07-16] MEDS: FAMOTIDINE (20 MG) 20 MG TABLET PO SCH (10:04)
[2020-07-16] MEDS: risperiDONE 1 MG TABLET PO SCH (10:21)
[2020-07-16] MEDS: BENZTROPINE MESYLATE (1 MG) 1 MG TABLET PO SCH ×2 (10:21→17:15)
[2020-07-16] MEDS: CEFTRIAXONE 1 G in IV D5W 50 ML IV SCH (13:13)
[2020-07-16 16:00] VITALS: BP 98/51
[2020-07-16] MEDS: ENOXAPARIN SODIUM 40 MG/0.4 ML DISP.SYRIN SQ SCH (17:17)
--- NOTE | 2020-07-16 18:05 | NUR ---
ENERGY DIRECTOR NOTES PATIENT FOR DISCHARGE, DISCHARGE PACKET/EDUCATION/INSTRUCTIONS AND REPORT GIVEN VIA TELEPHONE TO NURSE (SHASHI). ALERT AND ORIENTED X2. ALL BELONGINGS ACCOUNTED FOR. PER SHASHI, REQUESTED TO HAVE IV ACCESS DUE TO PATIENT WILL CONTINUE TO RECEIVED DECADRON AT FACILITY. INFORMED SHASHI, INSERTED RIGHT FA #[phone]. PATIENT PICKED UP BY AMBULANCE ACCOMPANIED BY 2 EMT. PATIENT LEFT VIA GURNEY IN STABLE CONDITION.
== END 2020-07-16 18:05 | DRG 177 ==
LOC: ER 11:57 → TELE2 16:18
PROVIDERS: ADMIT Student in an Organized Health Care Education/Training Program; ATTEND Family Medicine
DX: U07.1 COVID-19 (principal); J12.89 Other viral pneumonia; J96.01 Acute respiratory failure with hypoxia; J98.11 Atelectasis; I10 Essential (primary) hypertension; Z87.440 Personal history of urinary (tract) infections; K21.9 Gastro-esophageal reflux disease without esophagitis; F20.9 Schizophrenia, unspecified; M19.90 Unspecified osteoarthritis, unspecified site; F32.9 Major depressive disorder, single episode, unspecified
CPT/HCPCS: 36415; 36600; 71045-TC; 80048-TC; 80053-TC; 80061-TC; 81000-TC; 82550-TC; 82728-TC; 82803-TC; 83605-TC; 83615-TC; 83735-TC; 83880; 84100-TC; 84443-TC; 84484-TC; 85025-TC; 85378-TC; 85730-TC; 86140-TC; 87040-TC; 87081-TC; 87086-TC; 87186-TC; G0378; J0456; J0696; J1100; J1650; J7060; U0003

== ENCOUNTER 2021-02-10 11:30 | Outpatient (CLI) | payer MEDICARE, OTHER ==
[~2021-02-10 11:30] MED LIST changes: +ACET-907 PO; +CRAN450C PO; +DEXA10VI2 IV; +DEXT15DR6 OP; +DICL50TA9 PO; +ESCI10TA PO; +FAMO-131 PO; -IBUP-1957 PO; -LANS30CA56 PO; -LISI-603 PO; +LISI20TA30 PO; -MELO-107 PO
[2021-02-10] MEDS ORDERED: CHOL100062 PO (14:48)
[2021-02-10] MEDS ORDERED: POLY15DR40 EACHEYE (14:48)
[2021-02-10] MEDS ORDERED: MELA5TAB PO (14:48)
[2021-02-10] MEDS ORDERED: ZINC220C6 PO (14:48)
[2021-02-10] MEDS ORDERED: ASCO-352 PO (14:48)
[2021-02-10] MEDS ORDERED: RISP0.2515 PO (14:48)
[2021-02-10] MEDS ORDERED: GUAI100S11 PO (14:48)
== END 2021-02-10 23:59 ==
LOC: MSC 11:30
PROVIDERS: ATTEND Anesthesiology
DX: M17.0 Bilateral primary osteoarthritis of knee (principal); M25.572 Pain in left ankle and joints of left foot; F20.9 Schizophrenia, unspecified; F20.0 Paranoid schizophrenia; Z96.643 Presence of artificial hip joint, bilateral; Z79.1 Long term (current) use of non-steroidal anti-inflammatories (NSAID)
CPT/HCPCS: 82962; G0463

== ENCOUNTER 2021-02-10 12:36 | Inpatient (IN) | payer MEDICARE, OTHER ==
[~2021-02-10] VITALS: Ht 157.5 cm; Wt 115.7 kg
[2021-02-10] MEDS ORDERED: ONDANSETRON HCL/PF 4 MG/2 ML VIAL ONE (12:58)
[2021-02-10] MEDS ORDERED: IV NS 0.9% 1,000 ML BAG IV ONE (13:00)
[2021-02-10] MEDS ORDERED: ONDANSETRON HCL/PF 4 MG/2 ML VIAL IVP ONE (13:00)
--- NOTE | 2021-02-10 13:10 | NUR ---
patient came in to the er sent by pain management MD due to vomiting x 4. On room air, breathing evenly and unlabored. Connected to the monitor and pulse ox. kept comfortable, will continue to monitor accordingly. IV access strated and blood drawned and sent to lab.
[2021-02-10 13:26] LABS: BASOPHILS # (AUTO) 0.1 /CMM (0.0-0.2); BASOPHILS % (AUTO) 0.8 % (0.0-2.0); HEMATOCRIT 44 % (33-45); HEMOGLOBIN 14.3 g/dL (11.5-14.8); LYMPHOCYTES % (AUTO) 27.7 % (20.0-44.0); MEAN CORPUSCULAR HGB CONC 32 g/dl (31.0-36.0); MEAN CORPUSCULAR VOLUME 94 fL (82-100); MONOCYTES # (AUTO) 0.5 /CMM (0.1-1.30); MONOCYTES % (AUTO) 7.4 % (2.0-12.0); NEUTROPHILS # (AUTO) 4.4 /CMM (1.8-8.9); NEUTROPHILS % (AUTO) 62.1 % (43.0-81.0); PLATELET COUNT (AUTO) 211 /CMM (150-450); WHITE BLOOD COUNT (AUTO) 7.1 K/uL (4.3-11.0)
[2021-02-10 13:36] LABS: CALCIUM, SERUM 9.5 mg/dL (8.5-10.1); CARBON DIOXIDE 24 mmol/L (21-32); CHLORIDE 105 mmol/L (98-107); GLUCOSE 138 mg/dL (74-106); SODIUM SERUM 143 mmol/L (136-145); UREA NITROGEN, BLOOD 18 mg/dL (7-18)
[2021-02-10 13:42] LABS: ALANINE AMINOTRANSFERASE 91 U/L (12-78); ALBUMIN 3.7 g/dL (3.4-5.0); ALKALINE PHOSPHATASE 83 U/L (46-116); ASPARTATE AMINOTRANSFERASE 87 U/L (15-37); BILIRUBIN,DIRECT 0.1 mg/dL (0.0-0.2); BILIRUBIN,TOTAL 0.3 mg/dL (0.2-1.0); TOTAL PROTEIN, SERUM 7.4 g/dL (6.4-8.2)
[2021-02-10] MEDS ORDERED: POLY15DR40 EACHEYE (14:48)
[2021-02-10] MEDS ORDERED: ASCO-352 PO (14:48)
[2021-02-10] MEDS ORDERED: RISP0.2515 PO (14:48)
[2021-02-10] MEDS ORDERED: ZINC220C6 PO (14:48)
[2021-02-10] MEDS ORDERED: CHOL100062 PO (14:48)
[2021-02-10] MEDS ORDERED: GUAI100S11 PO (14:48)
[2021-02-10] MEDS ORDERED: MELA5TAB PO (14:48)
--- NOTE | 2021-02-10 17:00 | NUR ---
CALLED NURSING SUP FOR M/S BED.
[2021-02-10] MEDS ORDERED: ACETAMINOPHEN 325 MG TABLET PO PRN (17:30)
[2021-02-10] MEDS ORDERED: ONDANSETRON HCL/PF 4 MG/2 ML VIAL IVP PRN (17:30)
[2021-02-10] MEDS ORDERED: HYDROCODONE/APAP 5/325MG TABLET PO PRN (17:30)
[2021-02-10] MEDS ORDERED: ZOLPIDEM TARTRATE 5 MG TABLET PO PRN (17:30)
[2021-02-10] MEDS ORDERED: Z GUARD REMEDY 2 OZ OINT TP PRN (17:30)
[2021-02-10] MEDS ORDERED: MAG HYDROX/AL HYDROX/SIMETH 30 ML UDC PO PRN (17:30)
[2021-02-10] MEDS ORDERED: MAGNESIUM HYDROXIDE 30 ML UDC PO PRN (17:30)
--- NOTE | 2021-02-10 18:51 | NUR ---
NURSING SUP GAVE M/S BED 105.
--- NOTE | 2021-02-10 19:04 | NUR ---
called for report, RN assigned to patient still getting shift change report to call back in 15 mins
--- NOTE | 2021-02-10 19:50 | NUR ---
PT WAS TRANSFERRED TO 105 UNDER ACLS
[2021-02-10 20:00] VITALS: BP 116/54
--- NOTE | 2021-02-10 20:00 | NUR ---
RN NOTE PT ARRIVED TO THE UNIT VIA GURNEY, PT IS A/A/O X4, ON RA SATING 96%. ON TELE MONITOR SHOWING SR WITH HR RATE IN 60s, SAFETY MEASURES IN PLACE.
[2021-02-10] MEDS: DIVALPROEX SODIUM 500 MG TABLET.DR PO SCH (21:14)
[2021-02-10] MEDS: IV NS 0.9% 1,000 ML IV PRN (22:40)
[2021-02-11] VITALS: BP 115/85
[2021-02-11 04:00] VITALS: BP 118/62
[2021-02-11 06:03] LABS: BASOPHILS % (AUTO) 0.6 % (0.0-2.0); HEMATOCRIT 39 % (33-45); LYMPHOCYTES # (AUTO) 1.2 /CMM (0.8-4.8); LYMPHOCYTES % (AUTO) 23.3 % (20.0-44.0); MEAN CORPUSCULAR HGB CONC 33 g/dl (31.0-36.0); MEAN CORPUSCULAR VOLUME 93 fL (82-100); MONOCYTES # (AUTO) 0.4 /CMM (0.1-1.30); MONOCYTES % (AUTO) 8.3 % (2.0-12.0); NEUTROPHILS # (AUTO) 3.4 /CMM (1.8-8.9); NEUTROPHILS % (AUTO) 65.8 % (43.0-81.0); PLATELET COUNT (AUTO) 136 /CMM (150-450); RED BLOOD CELL COUNT(AUTO) 4.21 MIL/uL (4.0-5.2); WHITE BLOOD COUNT (AUTO) 5.2 K/uL (4.3-11.0)
[2021-02-11 06:14] LABS: CALCIUM, SERUM 9.2 mg/dL (8.5-10.1); CREATININE 0.6 mg/dL (0.6-1.3); MAGNESIUM 2.6 mg/dL (1.8-2.4); PHOSPHORUS 3.9 mg/dL (2.5-4.9); POTASSIUM 4.2 mmol/L (3.5-5.1)
[2021-02-11 06:51] LABS: THYROID STIMULATING HORMONE 5.853 uIU/mL (0.358-3.74)
--- NOTE | 2021-02-11 07:17 | NUR ---
report given to oncoming shift for summer.
--- NOTE | 2021-02-11 07:30 | NUR ---
PATIENT OBSERVED IN BED, ALERT AND ORIENTED X3, ABLE TO VERBALIZE NEEDS, ON ROOM AIR BREATHING EVEN AND UNLABORED, PCR PENDING RESULT, - RAPID COVID TEST, COVID-PRECAUTION OBSERVED, AFEBRILE AT THIS TIME, 02SAT OF 98%, ON TELE MONITOR SR - HR 71, WILL CONTINUE TO MONITOR PATIENT, CALL LIGHT WITHIN REACH, NEEDS MET AND ANTICIPATED AT THIS TIME. Addendum: 02/11/21 at 1048 by KAYLEY NOVAK RN field return repairer NOTE
[2021-02-11 08:00] VITALS: BP 122/55
[2021-02-11] MEDS: CHOLECALCIFEROL 1,000 UNIT TABLET (VIT D3) PO SCH ×3 (09:19→16:31)
[2021-02-11] MEDS: DIVALPROEX SODIUM 500 MG TABLET.DR PO SCH ×2 (09:19→20:25)
[2021-02-11] MEDS: risperiDONE 1 MG TABLET PO SCH ×2 (09:20→16:31)
[2021-02-11] MEDS: ZINC SULFATE 220 MG CAPSULE PO SCH (09:20)
[2021-02-11] MEDS: BENZTROPINE MESYLATE (1 MG) 1 MG TABLET PO SCH ×2 (09:20→16:31)
[2021-02-11] MEDS: ESCITALOPRAM OXALATE (10 MG) 10 MG TABLET PO SCH (09:20)
[2021-02-11] MEDS: ASCORBIC ACID 500 MG TABLET PO SCH ×2 (09:20→16:31)
[2021-02-11 12:00] VITALS: BP 126/61
[2021-02-11] MEDS: IV NS 0.9% 1,000 ML IV PRN (12:12)
[2021-02-11 16:00] VITALS: BP 126/61
--- NOTE | 2021-02-11 19:31 | NUR ---
RN CLOSING NOTE PATIENT IN BED RESTING IN SEMI-FOWLERS POSITION. PATIENT ON ROOM AIR TOLERATING WELL. OBTAINED VERBAL ORDERS FROM [facility] TO D/C PATIENT TODAY AND TO STOP FLUIDS. CM INFORMED TO HOLD TRANSFER. SAFETY PRECAUTIONS IMPLEMENTED, CALL LIGHT WITHIN REACH, BED LOCKED AND IN LOWEST POSITION, SIDE RAILS UP X2. WILL ENDORSE CARE TO UPCOMING SHIFT.
[2021-02-11 20:00] VITALS: BP 129/59
--- NOTE | 2021-02-11 20:00 | NUR ---
PT RECEIVED IN BED A/A/O X4, ON RA SATING 96%. ON TELE MONITOR SHOWING SR WITH HR RATE IN 70s, SAFETY MEASURES IN PLACE. WILL CONTINUE WITH PLAN OF CARE.
[2021-02-12] VITALS: BP 132/66
[2021-02-12 04:00] VITALS: BP 120/49
--- NOTE | 2021-02-12 07:19 | NUR ---
report given to oncoming shift for summer.
[2021-02-12] MEDS: ASCORBIC ACID 500 MG TABLET PO SCH ×2 (09:00→18:40)
[2021-02-12] MEDS: ESCITALOPRAM OXALATE (10 MG) 10 MG TABLET PO SCH (09:00)
[2021-02-12 10:00] VITALS: BP 135/72
[2021-02-12] MEDS: CHOLECALCIFEROL 1,000 UNIT TABLET (VIT D3) PO SCH ×3 (10:57→18:39)
[2021-02-12] MEDS: risperiDONE 1 MG TABLET PO SCH ×2 (10:58→18:40)
[2021-02-12] MEDS: DIVALPROEX SODIUM 500 MG TABLET.DR PO SCH ×2 (10:58→21:46)
[2021-02-12] MEDS: ZINC SULFATE 220 MG CAPSULE PO SCH (10:58)
[2021-02-12] MEDS: BENZTROPINE MESYLATE (1 MG) 1 MG TABLET PO SCH ×2 (10:58→18:40)
[2021-02-12 13:03] VITALS: BP 132/68
[2021-02-12] MEDS: KETOROLAC TROMETHAMINE INJ 30 MG/ML VIAL IV SCH (15:24)
[2021-02-12 16:34] VITALS: BP 123/87
--- NOTE | 2021-02-12 19:05 | NUR ---
rn notes patient requesting to go back to SNF as soon as possible states she has friends there and misses her home, educated on progress and care , made comfortable , all MD orders carried out and all needs met in a timely manner, call light in reach, encouraged fluids and rest.
[2021-02-12 20:00] VITALS: BP 134/57
[2021-02-13] VITALS: BP 117/52
--- NOTE | 2021-02-13 01:36 | NUR ---
RN notes, In bed resting comfortably, watching TV with no distress noted. Breathing even and unlabored. On room air tolerating well. digital field service technician regarding the result of blood culture. Gram positive cocci seen on gram stain one bottle of set. Relayed to MD. Possible discharge in AM. No significant change of condition. Kept clean and dry.
[2021-02-13] MEDS: KETOROLAC TROMETHAMINE INJ 30 MG/ML VIAL IV SCH ×2 (03:29→16:49)
[2021-02-13 04:00] VITALS: BP 140/69
--- NOTE | 2021-02-13 07:27 | NUR ---
RN NOTES Received patient in bed resting comfortably easily aroused , wearing dark sunglasses , no SOB and no distress noted, Breathing even and unlabored, able to make needs known, On room air 02 levels at 98% at this time, made comfortable and helped pull up in bed and readjusted pillows for comfort, call light in reach.
[2021-02-13] MEDS: ZINC SULFATE 220 MG CAPSULE PO SCH (09:03)
[2021-02-13] MEDS: CHOLECALCIFEROL 1,000 UNIT TABLET (VIT D3) PO SCH ×3 (09:03→17:26)
[2021-02-13] MEDS: risperiDONE 1 MG TABLET PO SCH ×2 (09:04→16:43)
[2021-02-13] MEDS: ASCORBIC ACID 500 MG TABLET PO SCH ×2 (09:04→16:43)
[2021-02-13] MEDS: DIVALPROEX SODIUM 500 MG TABLET.DR PO SCH ×2 (09:05→20:25)
[2021-02-13] MEDS: ESCITALOPRAM OXALATE (10 MG) 10 MG TABLET PO SCH (09:05)
[2021-02-13] MEDS: BENZTROPINE MESYLATE (1 MG) 1 MG TABLET PO SCH ×2 (09:05→16:43)
[2021-02-13 10:00] VITALS: BP 128/46
--- NOTE | 2021-02-13 11:51 | NUR ---
RN NOTES PATIENT ATE 100% OF BREAKFAST, NO ASPIRATIONS NOTED , NO C/O PAIN, NO SOB, AND NO DISTRESS NOTED, ALL ORDERS CARRIED OUT AND SAFETY MEASURES INPLACE, WILL CONTINUE TO MONITOR
[2021-02-13 12:00] VITALS: BP 135/48
[2021-02-13 16:00] VITALS: BP 141/70
--- NOTE | 2021-02-13 19:30 | NUR ---
COTTONSEED MEAT PRESSER NOTE RECEIVED PATIENT IN BED. A/OX4. TOLERATING ROOM AIR. RESPIRATIONS ARE EVEN AND UNLABORED. NO S/SS OB NOTED. NO C/O PAIN AT THIS TIME. ENTERAL TELE MONITOR READS SINUS RHYTHM HR 67. IN NO APPARENT DISTRESS. IV ACCES IN LEFT HAND #18 PATENT AND SALINE LOCKED. INFORMED PATIENT SHE IS BEING DISCHARGED. BED IS LOW AND LOCKED, HOB ELEVATED IN SEMI FOWLERS, SIDE RIALS UP X2, CALL LIGHT WITHIN REACH. WILL CONTINUE TO MONITOR.
--- NOTE | 2021-02-13 19:39 | NUR ---
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 NOTIFIED OF D/C.
--- NOTE | 2021-02-13 19:55 | NUR ---
AMPARO ARRIAGA [phone] SPOKE WITH CHRIS LARA , AWARE OF TRANSFER TO SNF AND READY FOR ADMIT, DEPAKOTE GIVEN BY RN ON FRIT COATER PER ORDER AT THIS TIME.
[2021-02-13 20:00] VITALS: BP 124/76
--- NOTE | 2021-02-13 20:49 | NUR ---
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 PATIENT IS BEING DISCHARGE TO [facility] IN STABLE CONDITION. VITAL SIGNS TEMP 97.5 HR 67 RR 18 O2SAT 94% ON ROOM AIR. BP 124/76. A/OX4. TOLERATING ROOM AIR. RESPIRATIONS EVEN AND UNLABORED. NO C/O PAIN. IN NO APPARENT DISTRESS. IV IN THER LEFT HAND REMOVED. TELE BOX REMOVED. ID BAND REMOVED. AM NURSE LUKE. BELONGINGS LIST COMPLETED. DISCHARGE PAPER WORK SIGNED, EXIT CARE GIVEN AND EXPLAINED. 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
== END 2021-02-13 19:52 | DRG 315 ==
LOC: ER 12:37 → TELE1 19:15
DX: I95.9 Hypotension, unspecified (principal); E87.2 Acidosis; R11.10 Vomiting, unspecified; F20.9 Schizophrenia, unspecified; I10 Essential (primary) hypertension; M19.90 Unspecified osteoarthritis, unspecified site; R55 Syncope and collapse; K21.9 Gastro-esophageal reflux disease without esophagitis; Z20.822 Contact with and (suspected) exposure to COVID-19; K56.41 Fecal impaction; Z79.899 Other long term (current) drug therapy; I70.0 Atherosclerosis of aorta; M17.0 Bilateral primary osteoarthritis of knee; G89.4 Chronic pain syndrome; F32.9 Major depressive disorder, single episode, unspecified; Z96.643 Presence of artificial hip joint, bilateral; M43.17 Spondylolisthesis, lumbosacral region; Z99.3 Dependence on wheelchair; E66.8 Other obesity
CPT/HCPCS: 36415; 71045-TC; 80048-TC; 80061-TC; 80076-TC; 80164-TC; 82962-TC; 83605-TC; 83735-TC; 84100-TC; 84443-TC; 84484-TC; 85025-TC; 87040-TC; 87081-TC; 93307-TC; 97112-TC; 97530-TC; C9803; G0378; J1885; J2405; J7030; U0003

== ENCOUNTER 2021-03-17 14:00 | Outpatient (CLI) | payer MEDICARE, OTHER ==
[~2021-03-17 14:00] MED LIST changes: -ACET-907 PO; +ASCO-352 PO; +CHOL100062 PO; -DEXA10VI2 IV; -DEXT15DR6 OP; -FAMO-131 PO; +GUAI100S11 PO; +MELA5TAB PO; +POLY15DR40 EACHEYE; +RISP0.2515 PO; -RISP1TAB7 PO; +ZINC220C6 PO
== END 2021-03-17 23:59 | disposition home or self-care (01) ==
LOC: MSC 14:00
PROVIDERS: ATTEND Anesthesiology
DX: M17.0 Bilateral primary osteoarthritis of knee (principal); F20.9 Schizophrenia, unspecified; F20.0 Paranoid schizophrenia

== ENCOUNTER 2022-06-29 14:12 | Inpatient (IN) | payer MEDICARE, OTHER ==
[~2022-06-29] VITALS: Ht 165.1 cm; Wt 115.2 kg
[2022-06-29] MEDS ORDERED: LATA2.5D2 EACHEYE (14:57)
[2022-06-29] MEDS ORDERED: LIDO30CR47 TP (14:57)
[2022-06-29] MEDS ORDERED: DOCU-141 PO (14:57)
[2022-06-29] MEDS ORDERED: MAGN400O6 PO (14:57)
[2022-06-29] MEDS ORDERED: INSU100V3 SQ (14:57)
[2022-06-29] MEDS ORDERED: ACET-868 PO (14:57)
[2022-06-29] MEDS ORDERED: METF-440 PO (14:57)
[2022-06-29] MEDS ORDERED: MAG30ORA PO (14:57)
[2022-06-29] MEDS ORDERED: QUET25TA PO (14:57)
[2022-06-29] MEDS ORDERED: MAG HYDROX/AL HYDROX/SIMETH 30 ML UDC PO PRN ×2 (15:00→19:30)
[2022-06-29] MEDS ORDERED: MAGNESIUM HYDROXIDE 30 ML UDC PO PRN ×2 (15:00→19:30)
--- NOTE | 2022-06-29 15:15 | NUR ---
DENISE HAINES FROM CARE FACILITY,C/O ABDOMINAL PAIN "EVERYTIME I GO TO THE BATHROOM". PT IS A&OX4, TRANSFERRED TO ED [facility] VIA DRAW SHEET.
[2022-06-29] MEDS ORDERED: DEXTROSE 50%-WATER 50 ML DISP.SYRIN IV PRN ×2 (15:30→19:30)
[2022-06-29 15:39] LABS: BASOPHILS % (AUTO) 0.5 % (0.0-2.0); EOSINOPHILS % (AUTO) 2.7 % (0.0-6.0); HEMATOCRIT 39 % (33-45); HEMOGLOBIN 12.6 g/dL (11.5-14.8); LYMPHOCYTES # (AUTO) 1.1 K/uL (0.8-4.8); LYMPHOCYTES % (AUTO) 26.4 % (20.0-44.0); MEAN CORPUSCULAR HGB CONC 32 g/dl (31.0-36.0); MEAN CORPUSCULAR VOLUME 90 fL (82-100); MONOCYTES # (AUTO) 0.3 K/uL (0.1-1.30); MONOCYTES % (AUTO) 6.8 % (2.0-12.0); NEUTROPHILS # (AUTO) 2.6 K/uL (1.8-8.9); NEUTROPHILS % (AUTO) 63.6 % (43.0-81.0); PLATELET COUNT (AUTO) 144 K/uL (150-450); RED BLOOD CELL COUNT(AUTO) 4.35 MIL/uL (4.0-5.2); WHITE BLOOD COUNT (AUTO) 4.1 K/uL (4.3-11.0)
[2022-06-29 15:50] LABS: CALCIUM, SERUM 9.2 mg/dL (8.5-10.1); CREATININE 0.7 mg/dL (0.6-1.3)
[2022-06-29 16:01] LABS: ALBUMIN 3.5 g/dL (3.4-5.0); BILIRUBIN,DIRECT 0.1 mg/dL (0.0-0.2); BILIRUBIN,TOTAL 0.4 mg/dL (0.2-1.0); TOTAL PROTEIN, SERUM 6.9 g/dL (6.4-8.2)
[2022-06-29 16:28] LABS: BILIRUBIN,URINE NEGATIVE (NEGATIVE); COLOR,URINE YELLOW (YELLOW); LEUKOCYTE ESTERASE ,URINE NEGATIVE (NEGATIVE); NITRITE, URINE NEGATIVE (NEGATIVE); PROTEIN,URINE NEGATIVE (NEGATIVE); UGLUCOSE NEGATIVE (NEGATIVE); UROBILINOGEN,URINE 0.2 EU/dL (0.2)
[2022-06-29] MEDS ORDERED: ACETAMINOPHEN ES 500 MG TABLET PO ONE (16:30)
[2022-06-29] MEDS ORDERED: ACETAMINOPHEN ES 500 MG TABLET ONE (16:38)
[2022-06-29 16:55] LABS: BACTERIA,URINE Few /HPF (None Seen); SQUAMOUS EPITHELIAL CELL,UR Many /HPF (None Seen)
[2022-06-29] MEDS ORDERED: QUETIAPINE FUMARATE 25 MG TABLET PO SCH (17:00)
[2022-06-29] MEDS ORDERED: METFORMIN 500 MG TABLET PO SCH (17:00)
[2022-06-29] MEDS ORDERED: BENZTROPINE MESYLATE (1 MG) 1 MG TABLET PO SCH (17:00)
[2022-06-29] MEDS ORDERED: DOCUSATE SODIUM 100 MG CAPSULE PO SCH (17:00)
--- NOTE | 2022-06-29 17:03 | NUR ---
CORRECT EKG TIME 3057
[2022-06-29] MEDS: BLOOD SUGAR DIAGNOSTIC 1 EACH STRIP VI SCH ×2 (17:30→21:28)
--- NOTE | 2022-06-29 17:35 | NUR ---
BED 328-2
--- NOTE | 2022-06-29 17:42 | NUR ---
RAPID COVID SWAB DONE AND SENT TO LAB
--- NOTE | 2022-06-29 17:43 | NUR ---
REPORT GIVEN TO KIMMIE CHAVEZ
--- NOTE | 2022-06-29 19:15 | NUR ---
MS TRAILHEAD MAINTENANCE WORKER NOTES RECEIVED PATIENT FROM ED VIA [facility] AT 1900 UNDER THE CARE OF DR. PARSON WITH THE DX OF WEAKNESS. PATIENT IS A/O X4, VERBALIZED HER TEETH ARE FALLING OFF AND SHE WAS SENT HERE FOR FURTHER EVALUATION. PER TRANSFER FORM, PATIENT WAS C/O ABDOMINAL PAIN WHENEVER SHE GOES TO THE BATHROOM. DENIES PAIN AT THIS TIME. BREATHING EVEN AND NON-LABORED ON ROOM AIR. NOT IN APPARENT DISTRESS. HAS LEFT FOREARM IV ACCESS #20G AND SALINE LOCKED. NO S/S OF INFILTRATION NOTED. HAS INDWELLING NICKERSON CATHETER DRAINING CLEAR YELLOW URINE TO BAG BY GRAVITY. VITAL SIGNS TAKEN. SKIN IS INTACT. ALL BELONGINGS ACCOUNTED FOR. ORIENTED PATIENT TO ROOM AND UNIT. SAFETY PRECAUTIONS IN PLACE: BED LOW AND LOCKED, SIDE RAILS UP X2, CALL LIGHT WITHIN REACH. WILL CONTINUE POC.
[2022-06-29] MEDS ORDERED: ONDANSETRON HCL/PF 4 MG/2 ML VIAL IVP PRN (19:30)
[2022-06-29] MEDS ORDERED: ACETAMINOPHEN 325 MG TABLET PO PRN (19:30)
[2022-06-29] MEDS ORDERED: *INSULIN REGULAR(HUMULIN R)HUM 100 UNIT/ML VIAL SQ PRN (19:30)
[2022-06-29] MEDS ORDERED: INSULIN REGULAR, HUMAN 100 UNIT/ML 3 ML VIAL SQ PRN (19:30)
[2022-06-29] MEDS ORDERED: Z GUARD REMEDY 4 OZ OINT TP PRN (19:30)
[2022-06-29 20:00] VITALS: BP 117/64
[2022-06-29] MEDS: BENZTROPINE MESYLATE (1 MG) 1 MG TABLET PO SCH (20:22)
[2022-06-29] MEDS: DOCUSATE SODIUM 100 MG CAPSULE PO SCH (20:22)
[2022-06-29] MEDS: QUETIAPINE FUMARATE 25 MG TABLET PO SCH (20:23)
[2022-06-29] MEDS: DIVALPROEX SODIUM 500 MG TABLET.DR PO SCH (20:23)
[2022-06-29] MEDS ORDERED: DICLOFENAC SODIUM 25 MG TABLET.DR PO PRN (21:00)
[2022-06-29] MEDS ORDERED: DICLOFENAC SODIUM 50 MG TABLET.DR PO PRN (21:00)
[2022-06-29] MEDS: LATANOPROST EYE DROP 0.005% 2.5 ML BOTTLE EACHEYE SCH (21:23)
[2022-06-29] MEDS: *INSULIN REGULAR(HUMULIN R)HUM 100 UNIT/ML VIAL SQ PRN (21:31)
[2022-06-29] MEDS ORDERED: BLOOD SUGAR DIAGNOSTIC 1 EACH STRIP VI SCH (22:00)
--- NOTE | 2022-06-29 22:00 | NUR ---
MS RN NOTES EDUCATED PATIENT ABOUT DVT PROTOCOL, EXPLAINED IMPORTANCE AND HOW DVT PUMPS/ANTICOAGULANT WORK. REFUSED DVT PUMPS AND VERBALIZED SHE ONLY WANTS THE CHEMICAL PROPHYLAXIS.
[2022-06-30 06:22] LABS: BASOPHILS % (AUTO) 0.4 % (0.0-2.0); EOSINOPHILS % (AUTO) 2.8 % (0.0-6.0); HEMATOCRIT 39 % (33-45); HEMOGLOBIN 12.5 g/dL (11.5-14.8); LYMPHOCYTES # (AUTO) 0.9 K/uL (0.8-4.8); LYMPHOCYTES % (AUTO) 26.6 % (20.0-44.0); MEAN CORPUSCULAR HGB CONC 33 g/dl (31.0-36.0); MEAN CORPUSCULAR VOLUME 89 fL (82-100); MONOCYTES # (AUTO) 0.3 K/uL (0.1-1.30); MONOCYTES % (AUTO) 7.9 % (2.0-12.0); NEUTROPHILS # (AUTO) 2.2 K/uL (1.8-8.9); NEUTROPHILS % (AUTO) 62.3 % (43.0-81.0); PLATELET COUNT (AUTO) 126 K/uL (150-450); RED BLOOD CELL COUNT(AUTO) 4.31 MIL/uL (4.0-5.2); WHITE BLOOD COUNT (AUTO) 3.5 K/uL (4.3-11.0)
--- NOTE | 2022-06-30 06:27 | NUR ---
MS RN NOTES PATIENT C/O SHARP PAIN IN THE BLADDER AREA AND REQUESTED TO REMOVE THE NICKERSON CATHETER. BLADDER SCAN DONE, NO URINE RETENTION. NO BLOOD IN THE VULVA OR IN THE URINE. NO BLADDER DISTENTION. INFORMED CN MELO. OKAY TO REMOVE NICKERSON CATHETER. 500 ML OUTPUT NOTED.
[2022-06-30 06:38] LABS: CALCIUM, SERUM 9.3 mg/dL (8.5-10.1); CARBON DIOXIDE 28 mmol/L (21-32); CHLORIDE 105 mmol/L (98-107); CREATININE 0.6 mg/dL (0.6-1.3); GLUCOSE 138 mg/dL (74-106); MAGNESIUM 2.6 mg/dL (1.8-2.4); PHOSPHORUS 4.3 mg/dL (2.5-4.9); POTASSIUM 3.8 mmol/L (3.5-5.1); SODIUM SERUM 142 mmol/L (136-145); UREA NITROGEN, BLOOD 13 mg/dL (7-18)
[2022-06-30] MEDS: BLOOD SUGAR DIAGNOSTIC 1 EACH STRIP VI SCH ×4 (06:45→21:14)
[2022-06-30] MEDS: INSULIN REGULAR, HUMAN 100 UNIT/ML 3 ML VIAL SQ PRN ×2 (06:49→12:13)
--- NOTE | 2022-06-30 07:11 | NUR ---
MS RN CLOSING NOTES PATIENT LYING IN BED ASLEEP, EASY TO AROUSE. A/O X4. ABLE TO VERBALIZE NEEDS. NO SOB OR NOTED, TOLERATING ROOM AIR WELL. NO ACUTE DISTRESS NOTED. VERBALIZED THE PAIN IN HER BLADDER AREA WAS GONE. AFEBRILE. HAS LEFT FOREARM IV ACCESS #20G AND SALINE LOCKED. INTACT, PATENT AND FLUSHING. NICKERSON CATHETER REMOVED. ADVISED TO INCREASE WATER INTAKE. ALL DUE MEDS GIVEN AND NEEDS ATTENDED. PERINEAL CARE RENDERED. SAFETY PRECAUTIONS MAINTAINED. WILL ENDORSE TO NEXT SHIFT FOR SAPNA.
--- NOTE | 2022-06-30 07:45 | NUR ---
MS SCOTT OPENING NOTE Patient in bed, awake. A/O x 4, able to make needs known. On room air, breathing evenly and unlabored. No SOB or s/s of distress noted. IV access on LFA #22 SL, intact and patent. Safety precautions in place: bed in low, locked position; siderais up x 2; call light within reach. Will continue to monitor. Addendum: 06/30/22 at 0748 by NEYMAR LLANOS RN CORRECTION: IV access on LFA #20
[2022-06-30 08:00] VITALS: BP 179/79
[2022-06-30] MEDS: DOCUSATE SODIUM 100 MG CAPSULE PO SCH ×2 (09:41→17:05)
[2022-06-30] MEDS: BENZTROPINE MESYLATE (1 MG) 1 MG TABLET PO SCH ×2 (09:42→17:06)
[2022-06-30] MEDS: LISINOPRIL (20MG) 20 MG TABLET PO SCH (09:47)
[2022-06-30] MEDS: QUETIAPINE FUMARATE 25 MG TABLET PO SCH ×2 (09:47→17:05)
[2022-06-30] MEDS: ESCITALOPRAM OXALATE (10 MG) 10 MG TABLET PO SCH (09:48)
[2022-06-30] MEDS: DIVALPROEX SODIUM 500 MG TABLET.DR PO SCH ×2 (09:56→20:29)
[2022-06-30 16:00] VITALS: BP 120/78
--- NOTE | 2022-06-30 19:28 | NUR ---
MS RN CLOSING NOTE Patient in bed, awake. A/O x 4, able to make needs known. Stable on room air, breathing evenly and unlabored. No SOB or s/s of distress noted. IV access on LFA #20 SL, intact and patent. Prescribed medications administered. Safety precautions in place: bed in low, locked position; siderails up x2; call light within reach. Will endorse to next shift any SAPNA.
--- NOTE | 2022-06-30 19:30 | NUR ---
MS RN OPENING NOTES RECEIVED PATIENT LYING IN BED COMFORTABLY. A/O X4. BREATHING EVEN AND NON-LABORED ON ROOM AIR. DENIES SOB OR . NOT IN APPARENT DISTRESS. C/O MILD HEADACHE. HAS LEFT FOREARM IV ACCESS #20G AND SALINE LOCKED. NO S/S OF INFILTRATION NOTED. CLEANED AND ORGANIZED AREA ACCORDINGLY. SAFETY PRECAUTIONS IN PLACE: BED LOW AND LOCKED, SIDE RAILS UP X2, CALL LIGHT WITHIN REACH. WILL CONTINUE POC.
[2022-06-30 20:00] VITALS: BP 127/61
[2022-06-30] MEDS: METFORMIN 500 MG TABLET PO SCH (20:28)
[2022-06-30] MEDS: ACETAMINOPHEN 325 MG TABLET PO PRN (20:44)
--- NOTE | 2022-06-30 20:52 | NUR ---
MS RN NOTES PATIENT C/O MILD HEADACHE AND REQUESTED TYLENOL. ADMINISTERED PRN AND TOLERATED WELL. WILL CONTINUE TO MONITOR.
[2022-06-30] MEDS: LATANOPROST EYE DROP 0.005% 2.5 ML BOTTLE EACHEYE SCH (21:14)
[2022-06-30] MEDS: *INSULIN REGULAR(HUMULIN R)HUM 100 UNIT/ML VIAL SQ PRN (21:16)
--- NOTE | 2022-07-01 06:14 | NUR ---
MS RN CLOSING NOTE; Patient in bed, awake. A/O x 4, able to make needs known. Stable on room air, breathing evenly and unlabored. No SOB or s/s of distress noted. IV access on LFA #20 SL, intact and patent.Due meds given as ordered,All needs attended. Safety precautions in place: bed in low, locked position; siderails up x2; call light within reach. Will endorse to next shift.
[2022-07-01 06:19] LABS: BASOPHILS % (AUTO) 0.5 % (0.0-2.0); EOSINOPHILS % (AUTO) 3.3 % (0.0-6.0); HEMATOCRIT 38 % (33-45); HEMOGLOBIN 12.2 g/dL (11.5-14.8); LYMPHOCYTES # (AUTO) 1.1 K/uL (0.8-4.8); LYMPHOCYTES % (AUTO) 32.4 % (20.0-44.0); MEAN CORPUSCULAR HGB CONC 33 g/dl (31.0-36.0); MEAN CORPUSCULAR VOLUME 89 fL (82-100); MONOCYTES # (AUTO) 0.2 K/uL (0.1-1.30); MONOCYTES % (AUTO) 7.2 % (2.0-12.0); NEUTROPHILS # (AUTO) 1.9 K/uL (1.8-8.9); NEUTROPHILS % (AUTO) 56.6 % (43.0-81.0); PLATELET COUNT (AUTO) 131 K/uL (150-450); RED BLOOD CELL COUNT(AUTO) 4.21 MIL/uL (4.0-5.2); WHITE BLOOD COUNT (AUTO) 3.3 K/uL (4.3-11.0)
[2022-07-01 06:28] LABS: CALCIUM, SERUM 9.1 mg/dL (8.5-10.1); CARBON DIOXIDE 27 mmol/L (21-32); CHLORIDE 105 mmol/L (98-107); CREATININE 0.5 mg/dL (0.6-1.3); GLUCOSE 147 mg/dL (74-106); POTASSIUM 4.1 mmol/L (3.5-5.1); SODIUM SERUM 141 mmol/L (136-145); UREA NITROGEN, BLOOD 12 mg/dL (7-18)
[2022-07-01] MEDS: INSULIN REGULAR, HUMAN 100 UNIT/ML 3 ML VIAL SQ PRN ×2 (06:42→11:32)
[2022-07-01] MEDS: BLOOD SUGAR DIAGNOSTIC 1 EACH STRIP VI SCH ×4 (06:43→21:07)
--- NOTE | 2022-07-01 07:20 | NUR ---
MS RN OPENING NOTES RECEIVED PATIENT LYING IN BED COMFORTABLY. A/O X4. BREATHING EVEN AND NON-LABORED ON ROOM AIR. DENIES SOB OR . NOT IN APPARENT DISTRESS. NO FURTHER COMPLAINED AT THIS TIME HAS LEFT FOREARM IV ACCESS #20G AND SALINE LOCKED. NO S/S OF INFILTRATION NOTED. CLEANED AND ORGANIZED AREA ACCORDINGLY. SAFETY PRECAUTIONS IN PLACE: BED LOW AND LOCKED, SIDE RAILS UP X2, CALL LIGHT WITHIN REACH. WILL CONTINUE POC.
[2022-07-01] MEDS: DOCUSATE SODIUM 100 MG CAPSULE PO SCH ×2 (09:33→16:50)
[2022-07-01] MEDS: ESCITALOPRAM OXALATE (10 MG) 10 MG TABLET PO SCH (09:33)
[2022-07-01] MEDS: LISINOPRIL (20MG) 20 MG TABLET PO SCH (09:34)
[2022-07-01] MEDS: DIVALPROEX SODIUM 500 MG TABLET.DR PO SCH ×2 (09:34→21:07)
[2022-07-01] MEDS: METFORMIN 500 MG TABLET PO SCH ×2 (09:34→16:51)
[2022-07-01] MEDS: QUETIAPINE FUMARATE 25 MG TABLET PO SCH ×2 (09:35→16:50)
[2022-07-01] MEDS: BENZTROPINE MESYLATE (1 MG) 1 MG TABLET PO SCH ×2 (09:35→16:51)
[2022-07-01 16:00] VITALS: BP 111/60
--- NOTE | 2022-07-01 19:00 | NUR ---
MS RN CLOSING NOTES PATIENT A/O X4. BREATHING EVEN AND NON-LABORED ON ROOM AIR. DENIES SOB OR . NOT IN APPARENT DISTRESS. NO FURTHER COMPLAINED. KEPT COMFORTABLE. CLEANED AND ORGANIZED AREA ACCORDINGLY. SAFETY PRECAUTIONS IN PLACE: BED LOW AND LOCKED, SIDE RAILS UP X2, CALL LIGHT WITHIN REACH. ENDORSED.
--- NOTE | 2022-07-01 19:55 | NUR ---
MS RN OPENING NOTE RECEIVED PATIENT AWAKE IN BED, ALERT/ORIENTED X 3, PT ABLE TO MAKE NEEDS KNOWN. PATIENT STABLE ON RA, NO S/S OF DISTRESS OR SOB NOTED, BREATHING EVEN AND UNLABORED. IV ACCESS ON LEFT FOREARM #20G INTACT AND SALINE LOCKED. HYGIENE CARE PROVIDED TO PATIENT, NOW LAYING COMFORTABLY IN BED. SAFETY MEASURES IN PLACE: CALL LIGHT WITHIN REACH, SIDE RAILS UP X 2, BED LOCKED IN LOWEST POSITION, BED ALARM ON. WILL CONTINUE TO MONITOR PATIENT
[2022-07-01 20:00] VITALS: BP 117/57
[2022-07-01] MEDS: LATANOPROST EYE DROP 0.005% 2.5 ML BOTTLE EACHEYE SCH (21:06)
[2022-07-01] MEDS: ACETAMINOPHEN 325 MG TABLET PO PRN (21:07)
[2022-07-01] MEDS: *INSULIN REGULAR(HUMULIN R)HUM 100 UNIT/ML VIAL SQ PRN (21:26)
[2022-07-02] MEDS: BLOOD SUGAR DIAGNOSTIC 1 EACH STRIP VI SCH ×2 (06:35→11:39)
[2022-07-02] MEDS: INSULIN REGULAR, HUMAN 100 UNIT/ML 3 ML VIAL SQ PRN ×2 (06:38→11:54)
--- NOTE | 2022-07-02 06:40 | NUR ---
MS RN CLOSING NOTE PATIENT AWAKE IN BED, ALERT/ORIENTED X 3, PT ABLE TO MAKE NEEDS KNOWN. PATIENT STABLE ON RA, NO S/S OF DISTRESS OR SOB NOTED, BREATHING EVEN AND UNLABORED. IV ACCESS ON LEFT FOREARM #20G INTACT AND SALINE LOCKED. NO SIGNIFICANT CHANGES THIS SHIFT, PATIENT SLEPT WELL THROUGH THE NIGHT. MEDICATIONS GIVEN ORDERED, PT NEEDS MET THROUGHOUT SHIFT. SAFETY MEASURES IN PLACE: CALL LIGHT WITHIN REACH, SIDE RAILS UP X 2, BED LOCKED IN LOWEST POSITION, BED ALARM ON. WILL ENDORSE TO DAYSHIFT NURSE FOR CONTINUITY OF CARE
--- NOTE | 2022-07-02 07:35 | NUR ---
MS RN OPENING NOTE RECEIVED PATIENT AWAKE IN BED, ALERT/ORIENTED X 3, PT ABLE TO MAKE NEEDS KNOWN. PATIENT STABLE ON RA BREATHING EVEN AND UNLABORED. NO S/S OF DISTRESS OR SOB NOTED, IV ACCESS ON LEFT FOREARM #20G INTACT AND SALINE LOCKED. NO COMPLAINS OF ANY PAIN OR DISCOMFORT. SAFETY MEASURES IN PLACE: CALL LIGHT AND TRAY TABLE WITHIN REACH, SIDE RAILS UP X 2, BED LOCKED IN LOWEST POSITION, BED ALARM ON. PATIENT IS ORIENTED TO THE FEATURES OF THE ROOM. WILL CONTINUE TO MONITOR PATIENT
[2022-07-02 08:00] VITALS: BP 117/58
[2022-07-02] MEDS: DIVALPROEX SODIUM 500 MG TABLET.DR PO SCH (08:40)
[2022-07-02] MEDS: QUETIAPINE FUMARATE 25 MG TABLET PO SCH (08:41)
[2022-07-02] MEDS: DOCUSATE SODIUM 100 MG CAPSULE PO SCH (08:41)
[2022-07-02] MEDS: METFORMIN 500 MG TABLET PO SCH (08:41)
[2022-07-02] MEDS: ESCITALOPRAM OXALATE (10 MG) 10 MG TABLET PO SCH (08:41)
[2022-07-02] MEDS: BENZTROPINE MESYLATE (1 MG) 1 MG TABLET PO SCH (08:41)
[2022-07-02 08:48] VITALS: BP 119/60
[2022-07-02] MEDS: LISINOPRIL (20MG) 20 MG TABLET PO SCH (08:48)
--- NOTE | 2022-07-02 16:00 | NUR ---
RN MS DISCHARGE NOTE PT DISCHARGED TO [facility] IN STABLE CONDITION. PT AOX/4, ABLE TO MAKE NEEDS KNOWN. ON ROOM AIR WITH NO SOB AND NO RESPIRATORY DISTRESS. VITAL SIGNS TAKEN, STABLE, AND RECORDED. PT'S SKIN'S INTACT. PT DENIES PAIN NOR DISCOMFORT AT THIS TIME. ALL BELONGINGS ACCOUNTED FOR. DISCHARGE INSTRUCTIONS GIVEN TO JANE GUZMÁN AT 1346, MEDS RECONCILIATION AND COVID TEST DONE. IV ACCESS ON LFA G#20 SL REMOVED WITH NO ACTIVE BLEEDING APPLIED AT SITE. PT LEFT THE UNIT AT 1545 VIA GURNEY ACCOMPANIED BY 2 PROJECT HIRE. CHARGE AND MD AWARE OF THE DC.
== END 2022-07-02 15:50 | DRG 74 ==
LOC: ER 14:15 → MED 17:38
PROVIDERS: ADMIT Internal Medicine; ATTEND Internal Medicine
DX: G62.9 Polyneuropathy, unspecified (principal); Z68.41 Body mass index [BMI] 40.0-44.9, adult; F20.9 Schizophrenia, unspecified; Z20.822 Contact with and (suspected) exposure to COVID-19; F31.9 Bipolar disorder, unspecified; E66.01 Morbid (severe) obesity due to excess calories; I10 Essential (primary) hypertension; R29.6 Repeated falls; M19.90 Unspecified osteoarthritis, unspecified site; K21.9 Gastro-esophageal reflux disease without esophagitis; Z79.4 Long term (current) use of insulin; Z79.84 Long term (current) use of oral hypoglycemic drugs; Z79.899 Other long term (current) drug therapy; R26.81 Unsteadiness on feet; G31.84 Mild cognitive impairment of uncertain or unknown etiology
CPT/HCPCS: 36415; 70450-TC; 71045-TC; 80048-TC; 80076-TC; 81001; 82962-TC; 83690-TC; 83735-TC; 84100-TC; 85025-TC; 87081-TC; 87086-TC; 97112-TC; 97116-TC; 97530-TC; G0378; J1815

== ENCOUNTER 2023-12-02 10:31 | Emergency (ER) | payer MEDICARE, OTHER ==
[~2023-12-02] VITALS: Ht 167.6 cm; Wt 107.0 kg
[2023-12-02 10:31] VITALS: TEMP 98.4
[~2023-12-02 10:31] MED LIST changes: +ACET-868 PO; -CRAN450C PO; +DOCU-141 PO; -GUAI100S11 PO; +INSU100V3 SQ; +LATA2.5D2 EACHEYE; +LIDO30CR47 TP; +MAG30ORA PO; +MAGN400O6 PO; +METF-440 PO; +QUET25TA PO; -RISP0.2515 PO
[2023-12-02 14:19] VITALS: BP 118/62; O2SAT 97
== END 2023-12-02 14:20 | disposition home or self-care (01) ==
LOC: ER 10:39
DX: S09.90XA Unspecified injury of head, initial encounter (principal); M25.562 Pain in left knee; M25.561 Pain in right knee; M25.572 Pain in left ankle and joints of left foot; M25.571 Pain in right ankle and joints of right foot; I10 Essential (primary) hypertension; E11.9 Type 2 diabetes mellitus without complications; Z79.4 Long term (current) use of insulin; Z79.899 Other long term (current) drug therapy; W10.9XXA Fall (on) (from) unspecified stairs and steps, initial encounter; Y93.89 Activity, other specified; Y92.89 Other specified places as the place of occurrence of the external cause; Y99.8 Other external cause status
CPT/HCPCS: 70450-TC; 73564-TC; 73610-TC